=== PATIENT | female | born 1965 | race African-American/Black ===

== ENCOUNTER 2018-05-18 17:34 | Emergency (ER) | payer SELFPAY ==
[~2018-05-18] VITALS: Ht 162.6 cm; Wt 104.3 kg
[~2018-05-18 17:34] MED LIST: LEVO750T31 PO; PROM118S5 PO
--- NOTE | 2018-05-18 17:48 | PHYS DOC ---
Past Medical History Past Medical History: Anxiety, Asthma, Bronchitis Past Surgical History: , Hysterectomy Alcohol Use: Occasionally Drug Use: None Adult General Chief Complaint Chief Complaint: anxiety attack HPI HPI Patient is a 52 year old female with history of anxiety, bronchitis who presents with chest pain, palpitations and increased anxiety upon waking from sleep. Patient contacted a massive was hyperventilating with carpal spasm on their arrival. No medications given prior to ED arrival. Chest pain palpitations shortness of breath resolved prior to ED arrival. However, patient remains anxious. Denies acute stressors. Denies history of CAD, CHF, DVT or PE. Patient is a current smoker. Denies drugs or alcohol use. Patient does not participate and routine [facility] ED visit.[] Review of Systems Review of Systems Review of symptoms as per history of present illness. All other review symptoms are negative[] All other systems were reviewed and found to be within normal limits, except as documented in this note. Allergies Allergies Allergies Coded Allergies Type Severity Reaction Last Updated Verified shellfish derived Allergy Intermediate 01/30/16 Yes Physical Exam Physical Exam Constitutional: Well developed, well nourished, anxious[] HENT: Normocephalic, atraumatic, bilateral external ears normal, oropharynx moist, no oral exudates, nose normal. [] Eyes: PERRLA, EOMI, conjunctiva normal, no discharge. [] Neck: Normal range of motion, no tenderness, supple, no stridor. [] Cardiovascular:Heart rate regular rhythm, no murmur, negative Homans sign. [] Lungs & Thorax: Bilateral breath sounds clear to auscultation [] Abdomen: Bowel sounds normal, soft, no tenderness. [] Skin: Warm, dry, no erythema, no rash. [] Back: No tenderness, no CVA tenderness. [] Extremities: No tenderness, no cyanosis, no clubbing, no edema. [] Neurologic: Alert and oriented X 3, normal motor function, normal sensory function, no focal deficits noted. [] Psychologic: Affect normal, judgement normal, mood normal. [] EKG EKG [EKG: Normal sinus rhythm, left axis deviation, rate 75, no acute ST-T wave changes.] Radiology/Procedures Radiology/Procedures [Chest x-ray:] Course & Med Decision Making Course & Med Decision Making Pertinent Labs and Imaging studies reviewed. (See chart for details) [Patient anxious in ED arrival. EKG, reviewed. Cardiac labs were Pending. Given patient's presentation there is a low index of suspicion for acute coronary disease. Care endorsed to oncoming ERP at 1800 for reevaluation and disposition. ] Dragon Disclaimer Dragon Disclaimer This electronic medical record was generated, in whole or in part, using a voice recognition dictation system. Departure Departure Impression: Primary Impression: Anxiety Additional Impression: Chest pain Condition: STABLE Referrals: NO PCP (PCP) Problem Qualifiers CARLOS RODRÍGUEZ DO May 18, 2018 17:48
[2018-05-18 17:57] LABS: BASO # 0.1 x10^3/uL (0.0-0.2); BASO % 1 % (0-3); EOS # 0.3 x10^3/uL (0.0-0.7); EOS % 5 % (0-3); HEMATOCRIT 38.6 % (36.0-47.0); HEMOGLOBIN 13.4 g/dL (12.0-15.5); LYMPH # 2.2 x10^3/uL (1.0-4.8); LYMPH % 33 % (24-48); MEAN CORPUSCULAR HEMOGLOBIN 27 pg (25-35); MEAN CORPUSCULAR HGB CONC 35 g/dL (31-37); MEAN CORPUSCULAR VOLUME 76 fL (79-100); MONO # 0.5 x10^3/uL (0.0-1.1); MONO % 8 % (0-9); NEUT # 3.5 x10^3uL (1.8-7.7); NEUT % 53 % (31-73); PLATELET COUNT 314 x10^3/uL (140-400); RED BLOOD COUNT 5.06 x10^6/uL (3.50-5.40); RED CELL DISTRIBUTION WIDTH 14.5 % (11.5-14.5); WHITE BLOOD COUNT 6.6 x10^3/uL (4.0-11.0)
[2018-05-18 18:07] LABS: CALCIUM 9.1 mg/dL (8.5-10.1); CREATININE 1.3 mg/dL (0.6-1.0); GFR 52.3; POTASSIUM 4.1 mmol/L (3.5-5.1)
[2018-05-18 18:12] LABS: ALBUMIN 3.2 g/dL (3.4-5.0); ALBUMIN/GLOBULIN RATIO 0.8 (1.0-1.7); TOTAL BILIRUBIN 0.2 mg/dL (0.2-1.0); TOTAL PROTEIN 7.1 g/dL (6.4-8.2)
[2018-05-18 18:27] LABS: BILIRUBIN,URINE NEGATIVE (NEG); CLARITY,URINE CLEAR; COLOR,URINE YELLOW; NITRITE,URINE NEGATIVE (NEG); PH,URINE 5.5; PROTEIN,URINE NEGATIVE (NEG-TRACE)
--- NOTE | 2018-05-18 18:31 | RAD ---
EXAM: AP View of the chest DATE: 05/18/2018 5:46 PM INDICATION: chest pain COMPARISON: No Prior FINDINGS: The heart is mildly enlarged. Mediastinal and hilar contours are stable. Minimal bibasilar parenchymal opacities are seen. No pleural effusion or pneumothorax. IMPRESSION: Minimal bibasilar parenchymal opacities likely atelectasis. Electronically signed by: Paul Nicole MD (05/18/2018 6:27 PM) [facility]
[2018-05-18 18:35] LABS: BARBITURATES NEG (NEG); BENZODIAZEPINES NEG (NEG); CANNABINOIDS NEG (NEG); COCAINE POS (NEG); METHADONE NEG (NEG); OPIATES NEG (NEG); PHENCYCLIDINE NEG (NEG)
[2018-05-18 18:36] LABS: AMPHETAMINE/METHAMPHETAMINE NEG (NEG); BACTERIA,URINE MODERATE /HPF (0-FEW); RBC,URINE 0 /HPF (0-2); SQUAMOUS EPITHELIAL CELL,UR MANY /LPF; WBC,URINE OCC /HPF (0-4)
[2018-05-18 19:00] VITALS: BP 129/69
[2018-05-18] MEDS ORDERED: LORA0.5T96 PO (19:09)
--- NOTE | 2018-05-19 07:24 | EKG ---
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
== END 2018-05-18 19:21 | disposition home or self-care (01) ==
LOC: ER 17:34
DX: F41.9 Anxiety disorder, unspecified (principal); R07.89 Other chest pain; R00.2 Palpitations; R06.4 Hyperventilation; J45.909 Unspecified asthma, uncomplicated; Z90.710 Acquired absence of both cervix and uterus; Z98.890 Other specified postprocedural states; Z91.013 Allergy to seafood
CPT/HCPCS: 36415; 71045; 80053; 80307; 81001; 84484; 85025; 87086; 93005; 99285-25

== ENCOUNTER 2018-07-13 22:59 | Emergency (ER) | payer SELFPAY ==
[~2018-07-13] VITALS: Ht 162.6 cm; Wt 104.3 kg
[~2018-07-13 22:59] MED LIST changes: +LORA0.5T96 PO
[2018-07-13 23:10] VITALS: BP 131/75
[2018-07-13 23:32] LABS: BILIRUBIN,URINE NEGATIVE (NEG); CLARITY,URINE CLEAR; COLOR,URINE YELLOW; NITRITE,URINE NEGATIVE (NEG); PH,URINE 5.5; PROTEIN,URINE NEGATIVE (NEG-TRACE)
[2018-07-13 23:38] LABS: BARBITURATES NEG (NEG); BENZODIAZEPINES NEG (NEG); CANNABINOIDS NEG (NEG); COCAINE POS (NEG); METHADONE NEG (NEG); OPIATES NEG (NEG); PHENCYCLIDINE NEG (NEG)
[2018-07-13 23:39] LABS: AMPHETAMINE/METHAMPHETAMINE NEG (NEG)
[2018-07-13 23:42] LABS: BACTERIA,URINE MODERATE /HPF (0-FEW); RBC,URINE 0 /HPF (0-2); SQUAMOUS EPITHELIAL CELL,UR MANY /LPF
--- NOTE | 2018-07-13 23:58 | PHYS DOC ---
Past Medical History Past Medical History: Anxiety, Asthma, Bronchitis, Cancer, Other Additional Past Medical Histor: POOR HISTORIAN, THROAT CANCER Past Surgical History: , Hysterectomy Alcohol Use: Occasionally Drug Use: Cocaine, Other Social History Narrative: see nurses notes Adult General Chief Complaint Chief Complaint: SORE THROAT HPI HPI Patient is a 52 year old female who presents with planes. Originally her complaint was a sore throat. That story has morphed into body aches, numbness and tingling in various extremities, vision issues, hot flashes, and various dermatological issues. While the patient was talking to us she began removing her clothing. She was unable to focus on the questions and answer them coherently. She would start one train of thought and then switch to a different body system. She states that she was smoking something at home she does not know what it was. She does admit to using cocaine on a regular basis. She thinks she might have smoked crack. She began to become very agitated and abusive to the nurses threatening them in the room that we were trying to kick her out. She then started putting her clothes on and got up to leave the room. We had already collected urine and were swabbing her throat for a strep swab. She states that she was leaving because as soon as they find out that you use drugs they start refusing to treat you. She then left the room and went into the waiting room where she began yelling at security and the triage desk that we were refusing her treatment. She began stating that we told her she would have to go to drug rehabilitation. This was absolutely never discussed in the room. We had offered to give her resources to be seen at a clinic such as [facility] or [facility] for primary care because she states that she did not see a doctor because she had no insurance. She then began screaming that we were missed treating her because she is black. At this point windows security engineer told her that she could not raise her voice in the waiting room. The patient continued to argue with him and then left the facility. We had repeatedly offered to evaluate her for strep. She refused to speak with us about coming back into the department for care. Review of Systems Review of Systems Unable to obtain ROS due to patient's condition Allergies Allergies Allergies Coded Allergies Type Severity Reaction Last Updated Verified shellfish derived Allergy Intermediate 01/30/16 Yes Physical Exam Physical Exam Unable to obtain physical exam due to patient's condition Current Patient Data Vital Signs Vital Signs Date Time Temp Pulse Resp B/P (MAP) Pulse Ox O2 Delivery O2 Flow Rate FiO2 07/13/18 23:10 99.2 89 18 131/75 (93) 97 Room Air 99.2 Lab Values Laboratory Tests Test 07/13/18 23:10 Urine Collection Type Unknown Urine Color Yellow Urine Clarity Clear Urine pH 5.5 Urine Specific [place] 1.025 Urine Protein Negative mg/dL (NEG-TRACE) Urine Glucose (UA) Negative mg/dL (NEG) Urine Ketones (Stick) Negative mg/dL (NEG) Urine Blood Negative (NEG) Urine Nitrite Negative (NEG) Urine Bilirubin Negative (NEG) Urine Urobilinogen Dipstick 1.0 mg/dL (0.2 mg/dL) Urine Leukocyte Esterase Negative (NEG) Urine RBC 0 /HPF (0-2) Urine WBC 1-4 /HPF (0-4) Urine Squamous Epithelial Cells Many /LPF Urine Bacteria Moderate /HPF (0-FEW) Urine Mucus Marked /LPF Urine Opiates Screen Neg (NEG) Urine Methadone Screen Neg (NEG) Urine Barbiturates Neg (NEG) Urine Phencyclidine Screen Neg (NEG) Urine Amphetamine/Methamphetamine Neg (NEG) Urine Benzodiazepines Screen Neg (NEG) Urine Cocaine Screen Pos (NEG) Urine Cannabinoids Screen Neg (NEG) Urine Ethyl Alcohol Neg (NEG) EKG EKG [] Radiology/Procedures Radiology/Procedures [] Course & Med Decision Making Course & Med Decision Making Pertinent Labs and Imaging studies reviewed. (See chart for details) []Please see nurse's notes for more documentation on the patient's behavior while the provider was not in the room. Dragon Disclaimer Dragon Disclaimer This electronic medical record was generated, in whole or in part, using a voice recognition dictation system. Departure Departure Impression: Primary Impression: Left against medical advice Disposition: 07 AGAINST MEDICAL ADVICE Referrals: NO PCP (PCP) AD VAZQUEZ APRN Jul 13, 2018 23:58
== END 2018-07-13 23:25 | disposition left against medical advice (07) ==
LOC: ER 22:59
DX: J02.9 Acute pharyngitis, unspecified (principal); M79.10 Myalgia, unspecified site; R20.2 Paresthesia of skin; F41.9 Anxiety disorder, unspecified; J45.909 Unspecified asthma, uncomplicated; F14.10 Cocaine abuse, uncomplicated; Z91.013 Allergy to seafood
CPT/HCPCS: 80307; 81001; 87086; 99281

== ENCOUNTER 2018-10-11 19:59 | Inpatient (IN) | payer SELFPAY ==
[~2018-10-11] VITALS: Ht 167.6 cm; Wt 103.6 kg
[2018-10-11] MEDS ORDERED: IV NORMAL SALINE 1000ML BAG 1,000 ML IV ONE (21:00)
--- NOTE | 2018-10-11 21:06 | PHYS DOC ---
Past Medical History Past Medical History: Anxiety, Asthma, Bronchitis, Cancer, Other Additional Past Medical Histor: POOR HISTORIAN, THROAT CANCER Past Surgical History: , Hysterectomy Smokin Pack Per Day Alcohol Use: Occasionally Drug Use: Cocaine, Other Adult General Chief Complaint Chief Complaint: MULTIPLE COMPLAINTS HPI HPI Patient is a 53-year-old female presenting with 2 weeks of coughing and shortness of breath, she has noticed some blood in her sputum. She reports that she has some pain with coughing and deep breaths. She has a past medical history of asthma, chronic bronchitis, and diabetes. She reports that she has been diagnosed with throat cancer but has not had follow-up in 4-5 years. She denies any nausea, vomiting, fevers. She reports that other than the blood her sputum has been clear. She has not taken any medication for this problem. Reports some associated chest pain. Review of Systems Review of Systems Constitutional: Denies fever or chills [] Eyes: Denies change in visual acuity, redness, or eye pain [] HENT: Reports nasal congestion, sore throat[] Respiratory: Reports cough and shortness of breath [] Cardiovascular: Reports chest pain; denies palpitations [] GI: Denies abdominal pain, nausea, vomiting, or diarrhea [] : Denies dysuria or hematuria [] Musculoskeletal: Denies back pain or joint pain [] Integument: Denies rash or skin lesions [] Neurologic: Denies headache, focal weakness or sensory changes [] Complete systems were reviewed and found to be within normal limits, except as documented in this note. Current Medications Current Medications Current Medications Medications (Trade) Dose Ordered Sig/Unruly Start Time Stop Time Status Last Admin Dose Admin Albuterol/ Ipratropium (Duoneb) 3 ml 1X ONCE 10/11/18 21:30 10/11/18 21:31 DC 10/11/18 21:57 3 ML Dexamethasone Sodium Phosphate (Decadron) 10 mg 1X ONCE 10/11/18 21:30 10/11/18 21:31 DC 10/11/18 21:24 10 MG Info (CONTRAST GIVEN -- Rx MONITORING) 1 each PRN DAILY PRN 10/11/18 22:00 10/13/18 21:59 Iohexol (Omnipaque 350 Mg/ml) 100 ml 1X ONCE 10/11/18 22:30 10/11/18 22:31 DC 10/11/18 22:24 100 ML Sodium Chloride 1,000 ml @ 1,000 mls/hr 1X ONCE 10/11/18 21:00 10/11/18 21:59 DC 10/11/18 21:25 1,000 MLS/HR Allergies Allergies Allergies Coded Allergies Type Severity Reaction Last Updated Verified shellfish derived Allergy Intermediate 01/30/16 Yes Physical Exam Physical Exam Constitutional: Well developed, well nourished, no acute distress, non-toxic appearance. [] HENT: Normocephalic, atraumatic, nose normal. [] Eyes: Conjunctiva normal, no discharge. [] Neck: Normal range of motion, no tenderness. [] Cardiovascular: Heart rate regular rhythm, no murmur [] Lungs & Thorax: Chest tightness and wheezing throughout with productive cough with clear sputum [] Abdomen: Bowel sounds normal, soft, no tenderness. [] Skin: Warm, dry, no erythema, no rash. [] Back: No tenderness, no CVA tenderness. [] Extremities: No tenderness, mild LE pitting edema [] Neurologic: Alert and oriented X 3, no focal deficits noted. [] Psychologic: Affect normal, judgement normal, mood normal. [] Current Patient Data Vital Signs Vital Signs Date Time Temp Pulse Resp B/P (MAP) Pulse Ox O2 Delivery O2 Flow Rate FiO2 10/11/18 23:57 65 20 172/93 (119) 99 Room Air 10/11/18 20:19 97.5 97.5 Lab Values Laboratory Tests Test 10/11/18 21:15 White Blood Count 8.3 x10^3/uL (4.0-11.0) Red Blood Count 5.13 x10^6/uL (3.50-5.40) Hemoglobin 12.8 g/dL (12.0-15.5) Hematocrit 38.9 % (36.0-47.0) Mean Corpuscular Volume 76 fL (79-100) L Mean Corpuscular Hemoglobin 25 pg (25-35) Mean Corpuscular Hemoglobin Concent 33 g/dL (31-37) Red Cell Distribution Width 15.2 % (11.5-14.5) H Platelet Count 310 x10^3/uL (140-400) Neutrophils (%) (Auto) 62 % (31-73) Lymphocytes (%) (Auto) 26 % (24-48) Monocytes (%) (Auto) 6 % (0-9) Eosinophils (%) (Auto) 5 % (0-3) H Basophils (%) (Auto) 1 % (0-3) Neutrophils # (Auto) 5.2 x10^3uL (1.8-7.7) Lymphocytes # (Auto) 2.2 x10^3/uL (1.0-4.8) Monocytes # (Auto) 0.5 x10^3/uL (0.0-1.1) Eosinophils # (Auto) 0.4 x10^3/uL (0.0-0.7) Basophils # (Auto) 0.1 x10^3/uL (0.0-0.2) Prothrombin Time 12.0 SEC (11.7-14.0) Prothrombin Time INR 0.9 (0.8-1.1) Sodium Level 143 mmol/L (136-145) Potassium Level 4.1 mmol/L (3.5-5.1) Chloride Level 106 mmol/L (98-107) Carbon Dioxide Level 30 mmol/L (21-32) Anion Gap 7 (6-14) Blood Urea Nitrogen 15 mg/dL (7-20) Creatinine 0.8 mg/dL (0.6-1.0) Estimated GFR (Cockcroft-Gault) 91.1 BUN/Creatinine Ratio 19 (6-20) Glucose Level 104 mg/dL (70-99) H Lactic Acid Level 0.8 mmol/L (0.4-2.0) Calcium Level 8.7 mg/dL (8.5-10.1) Magnesium Level 2.0 mg/dL (1.8-2.4) Total Bilirubin 0.1 mg/dL (0.2-1.0) L Aspartate Amino Transferase (AST) 11 U/L (15-37) L Alanine Aminotransferase (ALT) 12 U/L (14-59) L Alkaline Phosphatase 112 U/L (46-116) Creatine Kinase 58 U/L (26-192) Creatine Kinase MB (Mass) < 0.5 ng/mL (0.0-3.6) Creatine Kinase MB Relative Index % (0-4) Troponin I Quantitative < 0.017 ng/mL (0.000-0.055) AL-Fxg-B-Type Natriuretic Peptide 98 pg/mL (0-124) Total Protein 6.9 g/dL (6.4-8.2) Albumin 2.9 g/dL (3.4-5.0) L Albumin/Globulin Ratio 0.7 (1.0-1.7) L Lipase 128 U/L (73-393) Laboratory Tests 10/11/18 21:15 Laboratory Tests 10/11/18 21:15 EKG EKG EKG @ 2152 sinus rhythm at 64 BPM, no ST elevation Radiology/Procedures Radiology/Procedures PROCEDURE: CT ANGIOGRAPHY CHEST INDICATION: chest pain, hemoptysis eval for PE, OMNI 350, 100ml COMPARISON: None. TECHNIQUE: Axial CT images obtained through the chest. Intravenous contrast utilized. Angiogram 3D images processed per protocol. One or more of the following individualized dose reduction techniques were utilized for this examination: 1. Automated exposure control; 2. Adjustment of the mA and/or kV according to patient size; 3. Use of iterative reconstruction technique. FINDINGS: No evidence of pneumothorax. Large amount of patient motion limits this exam. Masslike opacity in the right infrahilar region measuring approximately 18 x 11 mm. Also prominent lymph nodes in mediastinum. For example precarinal region measuring up to about 9 mm short axis. Liver is partially seen and appears low density. Nonspecific but can be seen with fatty infiltration. Prominence of wall of distal esophagus as well as well as part of partially visualized stomach. Large amount of motion obscures a large portion of the thoracic aorta. Thyroid nodules suspected. Degenerative changes throughout spine. There is very little contrast within the pulmonary arteries and severe patient motion therefore essentially nondiagnostic exam for pulmonary embolus. IMPRESSION: Severe patient motion and very little contrast within the pulmonary arteries therefore essentially nondiagnostic exam for pulmonary embolus. If further evaluation is desired nuclear VQ scan may be helpful to further evaluate. Within the right infrahilar region there is a masslike structure identified. Could be secondary to an enlarged lymph node within the area or a pulmonary nodule. Further workup option would include obtaining a PET/CT or a short interval follow-up CT to ensure no growth given that neoplastic causes are in the differential for this finding. Wall of the esophagus appears mildly prominent as well as partially visualized stomach wall. Could be from lack of distention but would correlate with symptoms to ensure there is not a pathologic cause such as esophagitis/gastritis. Electronically signed by: Rober Jackson MD (10/11/2018 11:12 PM) [facility] DICTATED and SIGNED BY: ROBER JACKSON MD DATE: 10/11/18 7527 Course & Med Decision Making Course & Med Decision Making Pertinent Labs and Imaging studies reviewed. (See chart for details) Patient is a 53-year-old female with 2 weeks history of hemoptysis with shortness of breath and chest pain. EKG and initial troponin with CK-MB within normal limits. HEART score: 3. DuoNeb and steroids administered. Lactic acid, CBC, PT/INR within normal limits. CTA was inconclusive due to motion artifact, radiology suggested follow-up VQ scan to rule out pulmonary embolus. CTA also showed pulmonary nodule that will require follow-up management for the patient. Lovenox administered prophylactically because of inability to rule out PE. Discussed the need to admission to evaluate hemoptysis and possible PE. Patient requiring admission for further evaluation and treatment. Discussed with Dr. Evan Hendricks (hospitalist) who is in agreement with admission. Discussed findings and plan with patient and family, who acknowledge understanding and agreement. Dragon Disclaimer Dragon Disclaimer This electronic medical record was generated, in whole or in part, using a voice recognition dictation system. Departure Departure Impression: Primary Impression: Chest pain Additional Impressions: Pulmonary nodule Hemoptysis COPD (chronic obstructive pulmonary disease) Disposition: ADMITTED INPATIENT Admitting Physician: Other (Gildardo Townsend) Condition: STABLE Referrals: NO PCP (PCP) Problem Qualifiers Primary Impression: Chest pain Chest pain type: unspecified Qualified Codes: R07.9 - Chest pain, unspecified Additional Impressions: COPD (chronic obstructive pulmonary disease) COPD type: unspecified COPD Qualified Codes: J44.9 - Chronic obstructive pulmonary disease, unspecified JUSTINE WAGNER DO Oct 11, 2018 21:06
[2018-10-11] MEDS ORDERED: IPRATRPIUM/ALBUTEROL 0.5/2.5MG 3 ML NEBU. NEB ONE (21:30)
[2018-10-11] MEDS ORDERED: DEXAMETHASONE SOD PHOS 20 MG/5 ML VIAL. IV ONE (21:30)
[2018-10-11 21:31] LABS: BASO # 0.1 x10^3/uL (0.0-0.2); BASO % 1 % (0-3); EOS # 0.4 x10^3/uL (0.0-0.7); EOS % 5 % (0-3); HEMATOCRIT 38.9 % (36.0-47.0); HEMOGLOBIN 12.8 g/dL (12.0-15.5); LYMPH # 2.2 x10^3/uL (1.0-4.8); LYMPH % 26 % (24-48); MEAN CORPUSCULAR HEMOGLOBIN 25 pg (25-35); MEAN CORPUSCULAR HGB CONC 33 g/dL (31-37); MEAN CORPUSCULAR VOLUME 76 fL (79-100); MONO # 0.5 x10^3/uL (0.0-1.1); MONO % 6 % (0-9); NEUT # 5.2 x10^3uL (1.8-7.7); NEUT % 62 % (31-73); PLATELET COUNT 310 x10^3/uL (140-400); RED BLOOD COUNT 5.13 x10^6/uL (3.50-5.40); RED CELL DISTRIBUTION WIDTH 15.2 % (11.5-14.5); WHITE BLOOD COUNT 8.3 x10^3/uL (4.0-11.0)
[2018-10-11 21:43] LABS: CALCIUM 8.7 mg/dL (8.5-10.1); CREATININE 0.8 mg/dL (0.6-1.0); GFR 91.1; POTASSIUM 4.1 mmol/L (3.5-5.1)
[2018-10-11 21:48] LABS: ALBUMIN 2.9 g/dL (3.4-5.0); ALBUMIN/GLOBULIN RATIO 0.7 (1.0-1.7); TOTAL BILIRUBIN 0.1 mg/dL (0.2-1.0); TOTAL PROTEIN 6.9 g/dL (6.4-8.2)
[2018-10-11 21:58] LABS: CREATINE KINASE 58 U/L (26-192)
[2018-10-11] MEDS ORDERED: CONTRAST GIVEN. MC PRN (22:00)
[2018-10-11] MEDS ORDERED: IOHEXOL 350 MG/ML 100 ML VIAL. IV ONE (22:30)
--- NOTE | 2018-10-11 23:15 | RAD ---
INDICATION: chest pain, hemoptysis eval for PE, OMNI 350, 100ml COMPARISON: None. TECHNIQUE: Axial CT images obtained through the chest. Intravenous contrast utilized. Angiogram 3D images processed per protocol. One or more of the following individualized dose reduction techniques were utilized for this examination: 1. Automated exposure control; 2. Adjustment of the mA and/or kV according to patient size; 3. Use of iterative reconstruction technique. FINDINGS: No evidence of pneumothorax. Large amount of patient motion limits this exam. Masslike opacity in the right infrahilar region measuring approximately 18 x 11 mm. Also prominent lymph nodes in mediastinum. For example precarinal region measuring up to about 9 mm short axis. Liver is partially seen and appears low density. Nonspecific but can be seen with fatty infiltration. Prominence of wall of distal esophagus as well as well as part of partially visualized stomach. Large amount of motion obscures a large portion of the thoracic aorta. Thyroid nodules suspected. Degenerative changes throughout spine. There is very little contrast within the pulmonary arteries and severe patient motion therefore essentially nondiagnostic exam for pulmonary embolus. IMPRESSION: Severe patient motion and very little contrast within the pulmonary arteries therefore essentially nondiagnostic exam for pulmonary embolus. If further evaluation is desired nuclear VQ scan may be helpful to further evaluate. Within the right infrahilar region there is a masslike structure identified. Could be secondary to an enlarged lymph node within the area or a pulmonary nodule. Further workup option would include obtaining a PET/CT or a short interval follow-up CT to ensure no growth given that neoplastic causes are in the differential for this finding. Wall of the esophagus appears mildly prominent as well as partially visualized stomach wall. Could be from lack of distention but would correlate with symptoms to ensure there is not a pathologic cause such as esophagitis/gastritis. Electronically signed by: Elijah Guo MD (10/11/2018 11:12 PM) [facility]
[2018-10-12] VITALS (7 sets, daily range): BP systolic 140–156; BP diastolic 65–83
[2018-10-12] MEDS ORDERED: DEXTROSE 50% 25 GM / 50ML DISP.SYRIN. IV PRN
[2018-10-12] MEDS ORDERED: ALBUTEROL SULFATE 2.5 MG/3 ML NEBU. NEB PRN (00:15)
[2018-10-12 02:51] LABS: BILIRUBIN,URINE NEGATIVE (NEG); CLARITY,URINE CLEAR; COLOR,URINE YELLOW; NITRITE,URINE NEGATIVE (NEG); PH,URINE 6.5; PROTEIN,URINE NEGATIVE (NEG-TRACE); UROBILINOGEN,URINE 0.2 mg/dL (0.2 mg/dL)
[2018-10-12 03:12] LABS: BACTERIA,URINE MODERATE /HPF (0-FEW); RBC,URINE OCC /HPF (0-2); SQUAMOUS EPITHELIAL CELL,UR FEW /LPF; WBC,URINE OCC /HPF (0-4)
[2018-10-12] MEDS: INSULIN LISPRO 300 UNITS/3 ML INSULN.PEN. SQ SCH ×3 (07:57→17:00)
[2018-10-12 09:40] LABS: BARBITURATES NEG (NEG); BENZODIAZEPINES NEG (NEG); CANNABINOIDS NEG (NEG); COCAINE NEG (NEG); METHADONE NEG (NEG); OPIATES NEG (NEG); PHENCYCLIDINE NEG (NEG)
[2018-10-12 09:48] LABS: AMPHETAMINE/METHAMPHETAMINE NEG (NEG)
--- NOTE | 2018-10-12 10:04 | PDOC1 ---
History and Physical Date of Admission Date of Admission DATE: 10/12/18 TIME: 10:04 Identification/Chief Complaint Chief Complaint Patient is a 53-year-old female presenting with 2 weeks of coughing and shortness of breath, she has noticed some blood in her sputum. She reports that she has some pain with coughing and deep breaths. She has a past medical history of asthma, chronic bronchitis, and diabetes. She reports that she has been diagnosed with throat cancer but has not had follow-up in 4-5 years. She denies any nausea, vomiting, fevers. She reports that other than the blood her sputum has been clear. c/o epistaxis this AM Past Medical History Past Medical History Past Medical History Past Medical History: Anxiety, Asthma, Bronchitis, Cancer, Other Additional Past Medical Histor: POOR HISTORIAN, THROAT CANCER Past Surgical History: , Hysterectomy Smokin Pack Per Day Alcohol Use: Occasionally Drug Use: Cocaine, Other FAMILY HX OBESITY Cardiovascular: HTN Pulmonary: Asthma Psych: Anxiety, Addictions Family History Family History: Hypertension Social History Smoke: <1 pack per day ALCOHOL: none Drugs: Cocaine Current Problem List Problem List Problems Medical Problems: (1) Chest pain Status: Acute (2) COPD (chronic obstructive pulmonary disease) Status: Acute (3) Hemoptysis Status: Acute (4) Pulmonary nodule Status: Acute Current Medications Current Medications Current Medications Sodium Chloride 1,000 ml @ 1,000 mls/hr 1X ONCE IV Last administered on at 21:25; Start 10/11/18 at 21:00; Stop 10/11/18 at 21:59; Status DC Albuterol/ Ipratropium (Duoneb) 3 ml 1X ONCE NEB Last administered on at 21:57; Start 10/11/18 at 21:30; Stop 10/11/18 at 21:31; Status DC Dexamethasone Sodium Phosphate (Decadron) 10 mg 1X ONCE IV Last administered on 10/11/18at 21:24; Start 10/11/18 at 21:30; Stop 10/11/18 at 21:31; Status DC Iohexol (Omnipaque 350 Mg/ml) 100 ml 1X ONCE IV Last administered on at 22:24; Start 10/11/18 at 22:30; Stop 10/11/18 at 22:31; Status DC Info (CONTRAST GIVEN -- Rx MONITORING) 1 each PRN DAILY PRN MC SEE COMMENTS; Start 10/11/18 at 22:00; Stop 10/13/18 at 21:59 Enoxaparin Sodium (Lovenox 100mg Syringe) 100 mg 1X ONCE SQ Last administered on 10/12/18at 00:21; Start 10/12/18 at 00:30; Stop 10/12/18 at 00:31; Status DC Ondansetron HCl (Zofran) 4 mg PRN Q8HRS PRN IV NAUSEA/VOMITING 1ST CHOICE; Start 10/12/18 at 00:00; Stop 10/12/18 at 23:59 Insulin Human Lispro (HumaLOG) 0-5 UNITS TIDWMEALS SQ ; Start 10/12/18 at 08:00 Dextrose (Dextrose 50%-Water Syringe) 12.5 gm PRN Q15MIN PRN IV SEE COMMENTS; Start 10/12/18 at 00:00 Albuterol Sulfate (Ventolin Neb Soln) 2.5 mg PRN Q4HRS PRN NEB WHEEZING Last administered on 10/12/18at 09:48; Start 10/12/18 at 00:15 Active Scripts Active Reported No Known Medications Prior To Admisstion (Info) Each 1 Each MC Allergies Allergies: Coded Allergies: shellfish derived (Verified Allergy, Intermediate, 01/30/16) ROS Review of System Review of Systems Review of Systems Constitutional: Denies fever or chills [] Eyes: Denies change in visual acuity, redness, or eye pain [] HENT: Reports nasal congestion, sore throat[] NASAL BLEEDING Respiratory: Reports cough and shortness of breath [] Cardiovascular: Reports chest pain; denies palpitations [] GI: Denies abdominal pain, nausea, vomiting, or diarrhea [] : Denies dysuria or hematuria [] Musculoskeletal: Denies back pain or joint pain [] Integument: Denies rash or skin lesions [] Neurologic: Denies headache, focal weakness or sensory changes [] 14 PT systems were reviewed and found to be within normal limits, except as documented HEENT: YES: Nasal congestion, Epistaxis Gastrointestinal: No Nausea, No Vomiting, No Abdominal Pain, No Diarrhea, No Constipation, No Melena, No Hematochezia, No Other Physical Exam Physical Exam Physical Exam Physical Exam Constitutional: Well developed, well nourished, no acute distress, non-toxic appearance. [] HENT: Normocephalic, atraumatic, [] Eyes: Conjunctiva normal, no discharge. [] Neck: Normal range of motion, no tenderness. [] Cardiovascular: Heart rate regular rhythm, no murmur [] Lungs & Thorax: Chest tightness and wheezing throughout with productive cough with clear sputum [] Abdomen: Bowel sounds normal, soft, no tenderness. [] Skin: Warm, dry, no erythema, no rash. [] Back: No tenderness, no CVA tenderness. [] Extremities: No tenderness, mild LE pitting edema [] Neurologic: Alert and oriented X 3, no focal deficits noted. [] Psychologic: Affect normal, judgement normal, mood normal. [] General: Alert, Oriented X3, Cooperative, mild distress HEENT: Atraumatic, EOMI, Mucous membr. moist/pink Lungs: Clear to auscultation Heart: S1S2, RRR Breasts: Not examined Abdomen: Normal bowel sounds Rectal Exam: not examined PELVIC: Examination not indicated Extremities: No cyanosis Skin: No breakdown Neuro: Cranial nerves 3-12 NL Psych/Mental Status: Mental status NL Vitals Vitals Vital Signs Date Time Temp Pulse Resp B/P (MAP) Pulse Ox O2 Delivery O2 Flow Rate FiO2 10/12/18 09:49 98 Room Air 10/12/18 07:15 98.1 102 19 155/77 (103) 98.1 Labs Labs Laboratory Tests Test 10/11/18 21:15 10/12/18 01:10 10/12/18 02:55 10/12/18 06:00 White Blood Count 8.3 x10^3/uL (4.0-11.0) Red Blood Count 5.13 x10^6/uL (3.50-5.40) Hemoglobin 12.8 g/dL (12.0-15.5) Hematocrit 38.9 % (36.0-47.0) Mean Corpuscular Volume 76 fL (79-100) Mean Corpuscular Hemoglobin 25 pg (25-35) Mean Corpuscular Hemoglobin Concent 33 g/dL (31-37) Red Cell Distribution Width 15.2 % (11.5-14.5) Platelet Count 310 x10^3/uL (140-400) Neutrophils (%) (Auto) 62 % (31-73) Lymphocytes (%) (Auto) 26 % (24-48) Monocytes (%) (Auto) 6 % (0-9) Eosinophils (%) (Auto) 5 % (0-3) Basophils (%) (Auto) 1 % (0-3) Neutrophils # (Auto) 5.2 x10^3uL (1.8-7.7) Lymphocytes # (Auto) 2.2 x10^3/uL (1.0-4.8) Monocytes # (Auto) 0.5 x10^3/uL (0.0-1.1) Eosinophils # (Auto) 0.4 x10^3/uL (0.0-0.7) Basophils # (Auto) 0.1 x10^3/uL (0.0-0.2) Prothrombin Time 12.0 SEC (11.7-14.0) Prothromb Time International Ratio 0.9 (0.8-1.1) Sodium Level 143 mmol/L (136-145) Potassium Level 4.1 mmol/L (3.5-5.1) Chloride Level 106 mmol/L (98-107) Carbon Dioxide Level 30 mmol/L (21-32) Anion Gap 7 (6-14) Blood Urea Nitrogen 15 mg/dL (7-20) Creatinine 0.8 mg/dL (0.6-1.0) Estimated GFR (Cockcroft-Gault) 91.1 BUN/Creatinine Ratio 19 (6-20) Glucose Level 104 mg/dL (70-99) Lactic Acid Level 0.8 mmol/L (0.4-2.0) Calcium Level 8.7 mg/dL (8.5-10.1) Magnesium Level 2.0 mg/dL (1.8-2.4) Total Bilirubin 0.1 mg/dL (0.2-1.0) Aspartate Amino Transf (AST/SGOT) 11 U/L (15-37) Alanine Aminotransferase (ALT/SGPT) 12 U/L (14-59) Alkaline Phosphatase 112 U/L (46-116) Creatine Kinase 58 U/L (26-192) Creatine Kinase MB (Mass) < 0.5 ng/mL (0.0-3.6) Creatine Kinase MB Relative Index % (0-4) Troponin I Quantitative < 0.017 ng/mL (0.000-0.055) < 0.017 ng/mL (0.000-0.055) < 0.017 ng/mL (0.000-0.055) RC-Gev-I-Type Natriuretic Peptide 98 pg/mL (0-124) Total Protein 6.9 g/dL (6.4-8.2) Albumin 2.9 g/dL (3.4-5.0) Albumin/Globulin Ratio 0.7 (1.0-1.7) Lipase 128 U/L (73-393) Urine Collection Type Unknown Urine Color Yellow Urine Clarity Clear Urine pH 6.5 Urine Specific Luther >=1.030 Urine Protein Negative mg/dL (NEG-TRACE) Urine Glucose (UA) Negative mg/dL (NEG) Urine Ketones (Stick) Negative mg/dL (NEG) Urine Blood Negative (NEG) Urine Nitrite Negative (NEG) Urine Bilirubin Negative (NEG) Urine Urobilinogen Dipstick 0.2 mg/dL (0.2 mg/dL) Urine Leukocyte Esterase Negative (NEG) Urine RBC Occ /HPF (0-2) Urine WBC Occ /HPF (0-4) Urine Squamous Epithelial Cells Few /LPF Urine Bacteria Moderate /HPF (0-FEW) Test 10/12/18 07:08 10/12/18 09:13 Glucose (Fingerstick) 131 mg/dL (70-99) Urine Opiates Screen Neg (NEG) Urine Methadone Screen Neg (NEG) Urine Barbiturates Neg (NEG) Urine Phencyclidine Screen Neg (NEG) Urine Amphetamine/Methamphetamine Neg (NEG) Urine Benzodiazepines Screen Neg (NEG) Urine Cocaine Screen Neg (NEG) Urine Cannabinoids Screen Neg (NEG) Urine Ethyl Alcohol Neg (NEG) Laboratory Tests Test 10/11/18 21:15 10/12/18 01:10 10/12/18 02:55 10/12/18 06:00 White Blood Count 8.3 x10^3/uL (4.0-11.0) Red Blood Count 5.13 x10^6/uL (3.50-5.40) Hemoglobin 12.8 g/dL (12.0-15.5) Hematocrit 38.9 % (36.0-47.0) Mean Corpuscular Volume 76 fL (79-100) Mean Corpuscular Hemoglobin 25 pg (25-35) Mean Corpuscular Hemoglobin Concent 33 g/dL (31-37) Red Cell Distribution Width 15.2 % (11.5-14.5) Platelet Count 310 x10^3/uL (140-400) Neutrophils (%) (Auto) 62 % (31-73) Lymphocytes (%) (Auto) 26 % (24-48) Monocytes (%) (Auto) 6 % (0-9) Eosinophils (%) (Auto) 5 % (0-3) Basophils (%) (Auto) 1 % (0-3) Neutrophils # (Auto) 5.2 x10^3uL (1.8-7.7) Lymphocytes # (Auto) 2.2 x10^3/uL (1.0-4.8) Monocytes # (Auto) 0.5 x10^3/uL (0.0-1.1) Eosinophils # (Auto) 0.4 x10^3/uL (0.0-0.7) Basophils # (Auto) 0.1 x10^3/uL (0.0-0.2) Prothrombin Time 12.0 SEC (11.7-14.0) Prothromb Time International Ratio 0.9 (0.8-1.1) Sodium Level 143 mmol/L (136-145) Potassium Level 4.1 mmol/L (3.5-5.1) Chloride Level 106 mmol/L (98-107) Carbon Dioxide Level 30 mmol/L (21-32) Anion Gap 7 (6-14) Blood Urea Nitrogen 15 mg/dL (7-20) Creatinine 0.8 mg/dL (0.6-1.0) Estimated GFR (Cockcroft-Gault) 91.1 BUN/Creatinine Ratio 19 (6-20) Glucose Level 104 mg/dL (70-99) Lactic Acid Level 0.8 mmol/L (0.4-2.0) Calcium Level 8.7 mg/dL (8.5-10.1) Magnesium Level 2.0 mg/dL (1.8-2.4) Total Bilirubin 0.1 mg/dL (0.2-1.0) Aspartate Amino Transf (AST/SGOT) 11 U/L (15-37) Alanine Aminotransferase (ALT/SGPT) 12 U/L (14-59) Alkaline Phosphatase 112 U/L (46-116) Creatine Kinase 58 U/L (26-192) Creatine Kinase MB (Mass) < 0.5 ng/mL (0.0-3.6) Creatine Kinase MB Relative Index % (0-4) Troponin I Quantitative < 0.017 ng/mL (0.000-0.055) < 0.017 ng/mL (0.000-0.055) < 0.017 ng/mL (0.000-0.055) TK-Qrv-S-Type Natriuretic Peptide 98 pg/mL (0-124) Total Protein 6.9 g/dL (6.4-8.2) Albumin 2.9 g/dL (3.4-5.0) Albumin/Globulin Ratio 0.7 (1.0-1.7) Lipase 128 U/L (73-393) Urine Collection Type Unknown Urine Color Yellow Urine Clarity Clear Urine pH 6.5 Urine Specific Luther >=1.030 Urine Protein Negative mg/dL (NEG-TRACE) Urine Glucose (UA) Negative mg/dL (NEG) Urine Ketones (Stick) Negative mg/dL (NEG) Urine Blood Negative (NEG) Urine Nitrite Negative (NEG) Urine Bilirubin Negative (NEG) Urine Urobilinogen Dipstick 0.2 mg/dL (0.2 mg/dL) Urine Leukocyte Esterase Negative (NEG) Urine RBC Occ /HPF (0-2) Urine WBC Occ /HPF (0-4) Urine Squamous Epithelial Cells Few /LPF Urine Bacteria Moderate /HPF (0-FEW) Test 10/12/18 07:08 10/12/18 09:13 Glucose (Fingerstick) 131 mg/dL (70-99) Urine Opiates Screen Neg (NEG) Urine Methadone Screen Neg (NEG) Urine Barbiturates Neg (NEG) Urine Phencyclidine Screen Neg (NEG) Urine Amphetamine/Methamphetamine Neg (NEG) Urine Benzodiazepines Screen Neg (NEG) Urine Cocaine Screen Neg (NEG) Urine Cannabinoids Screen Neg (NEG) Urine Ethyl Alcohol Neg (NEG) Images Images STATUS: REG ER ORD. PHYSICIAN: JUSTINE WAGNER DO REASON: chest pain, hemoptysis eval for PE, OMNI 350, 100ml PROCEDURE: CT ANGIOGRAPHY CHEST INDICATION: chest pain, hemoptysis eval for PE, OMNI 350, 100ml COMPARISON: None. TECHNIQUE: Axial CT images obtained through the chest. Intravenous contrast utilized. Angiogram 3D images processed per protocol. One or more of the following individualized dose reduction techniques were utilized for this examination: 1. Automated exposure control; 2. Adjustment of the mA and/or kV according to patient size; 3. Use of iterative reconstruction technique. FINDINGS: No evidence of pneumothorax. Large amount of patient motion limits this exam. Masslike opacity in the right infrahilar region measuring approximately 18 x 11 mm. Also prominent lymph nodes in mediastinum. For example precarinal region measuring up to about 9 mm short axis. Liver is partially seen and appears low density. Nonspecific but can be seen with fatty infiltration. Prominence of wall of distal esophagus as well as well as part of partially visualized stomach. Large amount of motion obscures a large portion of the thoracic aorta. Thyroid nodules suspected. Degenerative changes throughout spine. There is very little contrast within the pulmonary arteries and severe patient motion therefore essentially nondiagnostic exam for pulmonary embolus. IMPRESSION: Severe patient motion and very little contrast within the pulmonary arteries therefore essentially nondiagnostic exam for pulmonary embolus. If further evaluation is desired nuclear VQ scan may be helpful to further evaluate. Within the right infrahilar region there is a masslike structure identified. Could be secondary to an enlarged lymph node within the area or a pulmonary nodule. Further workup option would include obtaining a PET/CT or a short interval follow-up CT to ensure no growth given that neoplastic causes are in the differential for this finding. Wall of the esophagus appears mildly prominent as well as partially visualized stomach wall. Could be from lack of distention but would correlate with symptoms to ensure there is not a pathologic cause such as esophagitis/gastritis. Electronically signed by: Rober Jackson MD (10/11/2018 11:12 PM) [facility] DICTATED and SIGNED BY: ROBER JACKSON MD DATE: 10/11/18 0629 VTE Prophylaxis Ordered VTE Prophylaxis Devices: Yes VTE Pharmacological Prophylaxi: Contraindicated Assessment/Plan Assessment/Plan IMPRESSION 1. Chest pain 2.on CTA right infrahilar region there is a masslike structure identified. Could be secondary to an enlarged lymph node within the area or a pulmonary nodule 3.Chest pain 4.COPD (chronic obstructive pulmonary disease) 5. Tobacco abuse 6. remote hx cocaine abuse, last use 4 months [employer] 7. epistaxis 8. uncontrolled hypertension PLAN PULM CONSULT CARD CONSULT d/w dr Mae tele serial troponin i echo iv hydralazine prn 10mg q 4 hrs prn bp support toprol xl 25 mg po daily scd's smoking cessation education provided ct soft tissues of neck 75 min pt exam, chart review, > 50% of time with exam, chart review, pt care coordination KARINA HURLEY MD Oct 12, 2018 10:04
--- NOTE | 2018-10-12 10:30 | NUR ---
Pt had active nose bleed. Dr Willis on the unit and assessed pt. Pt was hypertensive and I received orders from Dr Willis for a one time dose of hydralizine. Med given. Bleeding stopped after 7 min of pressure. VS remain stable.
[2018-10-12] MEDS ORDERED: guaiFENesin ORAL 200 MG/10 ML LIQUID. PO PRN (10:45)
[2018-10-12] MEDS ORDERED: cloNIDine HCL 0.1 MG TABLET PO PRN (10:45)
[2018-10-12] MEDS ORDERED: MAG HYDROX/ALUMINUM HYD/SIMETH 30 ML ORAL.SUSP PO PRN (10:45)
[2018-10-12] MEDS ORDERED: ACETAMINOPHEN 650 MG/20.3 ML SOLUTION. PO PRN (10:45)
[2018-10-12] MEDS ORDERED: LORazepam 0.5 MG TABLET PO PRN (10:45)
[2018-10-12] MEDS ORDERED: 0.9 % SODIUM CHLORIDE 3ML DISP.SYRIN. IV PRN (10:45)
[2018-10-12] MEDS ORDERED: ONDANSETRON PF 4 MG/2 ML VIAL. IV PRN ×2 (10:45)
[2018-10-12] MEDS ORDERED: DOCUSATE SODIUM 100 MG CAPSULE. PO PRN (10:45)
[2018-10-12] MEDS ORDERED: hydrALAZINE 20 MG/ML VIAL. IVP PRN (10:45)
[2018-10-12] MEDS: IPRATRPIUM/ALBUTEROL 0.5/2.5MG 3 ML NEBU. NEB SCH ×4 (10:45→20:25)
[2018-10-12] MEDS ORDERED: hydrALAZINE 20 MG/ML VIAL. IVP ONE (10:45)
[2018-10-12] MEDS ORDERED: ZOLPIDEM 5 MG TABLET. PO PRN (10:45)
[2018-10-12] MEDS ORDERED: SODIUM PHOSPHATES 19/7GM 133 ML ENEMA. PR PRN (10:45)
[2018-10-12] MEDS ORDERED: diphenhydrAMINE 50 MG/ML VIAL IVP PRN (10:45)
[2018-10-12] MEDS ORDERED: AZITHROMYCIN 250 MG TABLET. PO ONE (11:15)
--- NOTE | 2018-10-12 11:15 | PDOC ---
Provider Note Provider Note [id number] ?hemoptysis acute bronchitis acute exac of copd throat ca see order SCOUT BERGER MD Oct 12, 2018 11:15
--- NOTE | 2018-10-12 11:38 | NUR ---
ALBUTEROL WAS GIVEN AT 1000
--- NOTE | 2018-10-12 14:43 | EKG ---
[facility] [address] [place] [address] Test Date: 2018-10-11 Test Time: 21:52:21 Pat Name: STEPHANIE NUNEZ Department: Room: 652 1 Gender: F Fsr: : 1965 Requested By: JUSTINE WAGNER Order Number: [id number] Reading MD: George Dixon Measurements Intervals [place] Rate: 64 P: 64 SD: 164 QRS: 23 QRSD: 76 T: 59 QT: 422 QTc: 435 Interpretive Statements SINUS RHYTHM NON-SPECIFIC ST/T CHANGES Electronically Signed On 10-21-2018 12:37:05 CDT by George Dixon
--- NOTE | 2018-10-12 15:02 | RAD ---
Ventilation/perfusion lung scan. HISTORY: Productive cough and congestion, hemoptysis, indeterminate CTA, chest pain Ventilation study was done using 30 mCi xenon-133. Anterior and posterior ventilation images are normal. Perfusion images were done using 6 mCi technetium 99m MAA injected intravenously. Perfusion images are normal in appearance. There is no segmental perfusion defect. There is no ventilation perfusion mismatch. IMPRESSION: 1. Lung scan negative for a pulmonary embolus. Electronically signed by: Parveen Keating MD (10/12/2018 2:58 PM) [facility]
[2018-10-12] MEDS: cefTRIAXone IV Push 1 GM VIAL. IVP SCH (15:03)
[2018-10-12] MEDS: methylPREDNISolone SOD SUCC PF 40 MG/ML VIAL. IV SCH ×2 (15:03→21:16)
[2018-10-12] MEDS: METOPROLOL SUCC 24HR ER 25 MG TAB.ER.24H. PO SCH (15:04)
[2018-10-12] MEDS: PANTOPRAZOLE 40 MG TABLET.DR. PO SCH (15:04)
--- NOTE | 2018-10-12 15:23 | CONS ---
DATE OF CONSULTATION: 10/12/2018 I was asked to see this 53-year-old lady for abnormal CT of the chest, hemoptysis. HISTORY OF PRESENT ILLNESS: She has history of more than [id number] smoking, stopped smoking a few months ago. She has had increased shortness of breath, wheezing, cough and sputum production. She started to have hemoptysis and nose bleed for the past few days. She has had fever and chills. She denies gastroesophageal reflux symptoms. She was diagnosed with throat cancer about 3 years ago. No treatment is done. ALLERGIES: SHELLFISH. MEDICATIONS: Currently, she is on DuoNeb, Toprol, Ativan, clonidine, Tylenol. PAST MEDICAL HISTORY: COPD, history of throat cancer, hypertension, anxiety. . SOCIAL HISTORY: History of more than [id number] smoking, stopped smoking in July of this year. She used to do drugs. FAMILY HISTORY: Positive for cancer. She does not know details. REVIEW OF SYSTEMS: As mentioned as above, other systems otherwise negative. PHYSICAL EXAMINATION: GENERAL: This is an overweight lady. VITAL SIGNS: Her O2 saturation is 98%, respiratory rate 20, heart rate 84. Blood pressure 155/77, temperature 98.1. HEENT: Normocephalic, atraumatic. Pupils equal, round, reactive to light. There is shallow oropharynx. Poor dentition. NECK: There is no JVD, lymphadenopathy or thyromegaly. CARDIOVASCULAR: Regular rate and rhythm. PMI is nondisplaced. CHEST: On inspection bilateral end expiratory wheezing, dullness at the bases. ABDOMEN: Soft and obese. Bowel sounds are good. There is no mass. EXTREMITIES: There is edema. LYMPHATICS: There is no lymphadenopathy. SKIN: Chronic changes. NEUROLOGIC: Alert and oriented. LABORATORY DATA: Reviewed the following lab data. INR normal. Urine drug screen negative. WBC 8.3, hemoglobin 12.8, platelets 310. Sodium 143, potassium 4.1, chloride 106, CO2 of 30, glucose 104, BUN 15, creatinine 0.8. Total bilirubin 0.1. Troponin less than 0.01. BNP 98. CT of the chest was not a good study for pulmonary embolism. There is a right infrahilar mass-like structure, could be a mass versus enlarged lymph node. There was some prominent esophagus wall. IMPRESSION: 1. Dyspnea, multifactorial in etiology. 2. Acute exacerbation of chronic obstructive pulmonary disease. 3. Acute bronchitis. 4. Hemoptysis, could be secondary to bleeding from her throat cancer, which she states has never been treated versus acute bronchitis versus epistaxis versus others. 5. Ex-smoker. 6. Hypertension. PLAN AND RECOMMENDATIONS: 1. Titrate FiO2 to keep O2 saturation 92%. 2. Start Solu-Medrol 40 mg IV every 8 hours, first dose now. 3. Start Rocephin and azithromycin. 4. Continue bronchodilator. 5. I do recommend ENT consult. 6. I do recommend outpatient PET scan. 7. She may require bronchoscopy if her ENT exam is normal. If ENT exam is normal and she continues to have hemoptysis, I will discuss this with Dr. Hummel. 8. Protonix. 9. The esophagus wall looked abnormal. Further evaluation defer to primary doctor. I have discussed the findings and recommendations with the patient and RN. She understood and agreed to proceed with the plan. I have answered all of her questions. Thank you very much for allowing me to participate in care of this very nice lady. SCOUT BERGER M.D. : Jennifer JOB#: [id number] / [id number]
--- NOTE | 2018-10-12 15:23 | CONS ---
DATE OF CONSULTATION: 10/12/2018 REASON FOR CONSULTATION: Chest pain. HISTORY OF PRESENT ILLNESS: The patient is a 53-year-old woman with past medical history of severe tobacco abuse, who presents to the hospital in the setting of coughing and cough related chest pain. She apparently is usually on the road with her boyfriend who is a semi truck driver and does not recall any prior cardiac issues. She was admitted to [facility] in 2017 and reports that since then has been into couple other hospitals with flu-like symptoms. In this setting, over the last few days, she has had increasing cough, which is nonproductive in nature. Denies any fevers or chills, but did have musculoskeletal chest pain with these coughing spells. Upon arrival to the ER, she did not have any significant blood pressure elevation. Initial EKG and cardiac biomarkers were negative. CT of the chest was performed to rule out PE and this was inconclusive. She was given treatment for presumed PE and admitted to the floor. In talking to the patient today at bedside, she denies any specific anginal problems at home, but does have dyspnea. She admits to smoking approximately 3-4 packs a day. She does have a prior history of significant illicit drug use with positive cocaine tox screens in the past. PAST MEDICAL HISTORY: Notable for 1. COPD, possible asthma and there is concern for possible prior history of throat cancer. 2. Tobacco abuse. 3. Anxiety. FAMILY HISTORY: Noncontributory. ALLERGIES: SHELLFISH. CURRENT CARDIOVASCULAR MEDICATIONS: None. REVIEW OF SYSTEMS: As noted above in HPI. SOCIAL HISTORY: As noted above. PHYSICAL EXAMINATION: VITAL SIGNS: Afebrile, 72, 20, 155/83, 96% on room air. GENERAL: She is alert and oriented, no acute distress. HEAD AND NECK: Unremarkable. HEART: Regular rate and rhythm. LUNGS: Bilateral expiratory wheezing. ABDOMEN: Soft, nontender. EXTREMITIES: No clubbing, cyanosis or edema. NEUROLOGIC: No focal deficits. MUSCULOSKELETAL: No trauma. DIAGNOSTIC STUDIES: Troponin negative x 3. EKG is unremarkable. Coags and white blood cell count are within normal limits. Normal platelet count and hemoglobin levels. Chest CTA is notable for severe patient motion artifact, but no obvious pneumonia or pleural effusion noted. IMPRESSION: Chest pain: Noncardiac in nature, related clearly to her coughing spells, probable acute on chronic obstructive pulmonary disease exacerbation due to severe tobacco abuse. RECOMMENDATIONS: At this present time, continue treatment for her COPD, check tox screen is being done and supportive care from a cardiac standpoint. She has a normal EKG and negative biomarkers. No further cardiovascular testing necessary. Consider testing on an outpatient basis if needed. Thank you for this consultation. ALEXANDR KIRAN MD DR: MARIELLE/abhay JOB#: [id number] / [id number]
--- NOTE | 2018-10-12 16:28 | RAD ---
EXAM: Bilateral lower extremity venous Doppler sonogram. HISTORY: Pain and swelling. TECHNIQUE: Velasquez scale and color Doppler sonographic evaluation of the bilateral lower extremity veins with spectral waveform analysis was performed. FINDINGS: There is normal color flow, normal compressibility and there are normal spectral waveforms in the common femoral, superficial femoral, popliteal, posterior tibial and greater saphenous veins. IMPRESSION: No Doppler evidence of lower extremity deep venous thrombosis. Electronically signed by: Josi Soto MD (10/12/2018 4:25 PM) [facility]
[2018-10-12 17:40] LABS: INFLUENZA A PATIENT NEGATIVE (NEGATIVE); INFLUENZA B PATIENT NEGATIVE (NEGATIVE)
[2018-10-12] MEDS: LACTOBACILLUS RHAMNOSUS GG 1 CAPSULE. PO SCH (21:16)
[2018-10-13] MEDS: IPRATRPIUM/ALBUTEROL 0.5/2.5MG 3 ML NEBU. NEB SCH ×4 (02:45→11:49)
[2018-10-13 03:05] VITALS: BP 121/64
[2018-10-13] MEDS: methylPREDNISolone SOD SUCC PF 40 MG/ML VIAL. IV SCH (06:00)
[2018-10-13 07:23] LABS: BASO # 0.1 x10^3/uL (0.0-0.2); BASO % 0 % (0-3); EOS % 0 % (0-3); HEMATOCRIT 39.8 % (36.0-47.0); HEMOGLOBIN 12.9 g/dL (12.0-15.5); LYMPH # 1.6 x10^3/uL (1.0-4.8); LYMPH % 7 % (24-48); MEAN CORPUSCULAR HEMOGLOBIN 25 pg (25-35); MEAN CORPUSCULAR HGB CONC 32 g/dL (31-37); MEAN CORPUSCULAR VOLUME 76 fL (79-100); MONO # 0.4 x10^3/uL (0.0-1.1); MONO % 2 % (0-9); NEUT % 90 % (31-73); PLATELET COUNT 322 x10^3/uL (140-400); RED BLOOD COUNT 5.24 x10^6/uL (3.50-5.40); RED CELL DISTRIBUTION WIDTH 15.2 % (11.5-14.5); WHITE BLOOD COUNT 21.1 x10^3/uL (4.0-11.0)
[2018-10-13 07:37] VITALS: BP 127/71
--- NOTE | 2018-10-13 07:46 | PDOC ---
PULMONARY PROGRESS NOTES Subjective no hemoptysis, cough, sob better, no hemoptysis Vitals Vital Signs Date Time Temp Pulse Resp B/P (MAP) Pulse Ox O2 Delivery O2 Flow Rate FiO2 10/13/18 07:37 98.3 89 18 127/71 (89) 96 Room Air 98.3 ROS: No Nausea, No Chest Pain General: Alert HEENT: Other (nc at perrl) Lungs: Crackles Cardiovascular: S1, S2 Abdomen: Soft, Non-tender Neuro Exam: Alert Extremities: Other (edema) Labs Laboratory Tests Test 10/11/18 21:15 10/12/18 01:10 10/12/18 02:55 10/12/18 06:00 White Blood Count 8.3 x10^3/uL (4.0-11.0) Red Blood Count 5.13 x10^6/uL (3.50-5.40) Hemoglobin 12.8 g/dL (12.0-15.5) Hematocrit 38.9 % (36.0-47.0) Mean Corpuscular Volume 76 fL (79-100) Mean Corpuscular Hemoglobin 25 pg (25-35) Mean Corpuscular Hemoglobin Concent 33 g/dL (31-37) Red Cell Distribution Width 15.2 % (11.5-14.5) Platelet Count 310 x10^3/uL (140-400) Neutrophils (%) (Auto) 62 % (31-73) Lymphocytes (%) (Auto) 26 % (24-48) Monocytes (%) (Auto) 6 % (0-9) Eosinophils (%) (Auto) 5 % (0-3) Basophils (%) (Auto) 1 % (0-3) Neutrophils # (Auto) 5.2 x10^3uL (1.8-7.7) Lymphocytes # (Auto) 2.2 x10^3/uL (1.0-4.8) Monocytes # (Auto) 0.5 x10^3/uL (0.0-1.1) Eosinophils # (Auto) 0.4 x10^3/uL (0.0-0.7) Basophils # (Auto) 0.1 x10^3/uL (0.0-0.2) Prothrombin Time 12.0 SEC (11.7-14.0) Prothromb Time International Ratio 0.9 (0.8-1.1) Sodium Level 143 mmol/L (136-145) Potassium Level 4.1 mmol/L (3.5-5.1) Chloride Level 106 mmol/L (98-107) Carbon Dioxide Level 30 mmol/L (21-32) Anion Gap 7 (6-14) Blood Urea Nitrogen 15 mg/dL (7-20) Creatinine 0.8 mg/dL (0.6-1.0) Estimated GFR (Cockcroft-Gault) 91.1 BUN/Creatinine Ratio 19 (6-20) Glucose Level 104 mg/dL (70-99) Lactic Acid Level 0.8 mmol/L (0.4-2.0) Calcium Level 8.7 mg/dL (8.5-10.1) Magnesium Level 2.0 mg/dL (1.8-2.4) Total Bilirubin 0.1 mg/dL (0.2-1.0) Aspartate Amino Transf (AST/SGOT) 11 U/L (15-37) Alanine Aminotransferase (ALT/SGPT) 12 U/L (14-59) Alkaline Phosphatase 112 U/L (46-116) Creatine Kinase 58 U/L (26-192) Creatine Kinase MB (Mass) < 0.5 ng/mL (0.0-3.6) Creatine Kinase MB Relative Index % (0-4) Troponin I Quantitative < 0.017 ng/mL (0.000-0.055) < 0.017 ng/mL (0.000-0.055) < 0.017 ng/mL (0.000-0.055) MC-Api-L-Type Natriuretic Peptide 98 pg/mL (0-124) Total Protein 6.9 g/dL (6.4-8.2) Albumin 2.9 g/dL (3.4-5.0) Albumin/Globulin Ratio 0.7 (1.0-1.7) Lipase 128 U/L (73-393) Urine Collection Type Unknown Urine Color Yellow Urine Clarity Clear Urine pH 6.5 Urine Specific [place] >=1.030 Urine Protein Negative mg/dL (NEG-TRACE) Urine Glucose (UA) Negative mg/dL (NEG) Urine Ketones (Stick) Negative mg/dL (NEG) Urine Blood Negative (NEG) Urine Nitrite Negative (NEG) Urine Bilirubin Negative (NEG) Urine Urobilinogen Dipstick 0.2 mg/dL (0.2 mg/dL) Urine Leukocyte Esterase Negative (NEG) Urine RBC Occ /HPF (0-2) Urine WBC Occ /HPF (0-4) Urine Squamous Epithelial Cells Few /LPF Urine Bacteria Moderate /HPF (0-FEW) Test 10/12/18 07:08 10/12/18 09:13 10/12/18 11:17 10/12/18 16:35 Glucose (Fingerstick) 131 mg/dL (70-99) 110 mg/dL (70-99) Urine Opiates Screen Neg (NEG) Urine Methadone Screen Neg (NEG) Urine Barbiturates Neg (NEG) Urine Phencyclidine Screen Neg (NEG) Urine Amphetamine/Methamphetamine Neg (NEG) Urine Benzodiazepines Screen Neg (NEG) Urine Cocaine Screen Neg (NEG) Urine Cannabinoids Screen Neg (NEG) Urine Ethyl Alcohol Neg (NEG) Influenza Type A Antigen Negative (NEGATIVE) Influenza Type B Antigen Negative (NEGATIVE) Test 10/12/18 16:44 10/12/18 20:23 10/13/18 06:22 10/13/18 07:01 Glucose (Fingerstick) 112 mg/dL (70-99) 135 mg/dL (70-99) 150 mg/dL (70-99) White Blood Count 21.1 x10^3/uL (4.0-11.0) Red Blood Count 5.24 x10^6/uL (3.50-5.40) Hemoglobin 12.9 g/dL (12.0-15.5) Hematocrit 39.8 % (36.0-47.0) Mean Corpuscular Volume 76 fL (79-100) Mean Corpuscular Hemoglobin 25 pg (25-35) Mean Corpuscular Hemoglobin Concent 32 g/dL (31-37) Red Cell Distribution Width 15.2 % (11.5-14.5) Platelet Count 322 x10^3/uL (140-400) Neutrophils (%) (Auto) 90 % (31-73) Lymphocytes (%) (Auto) 7 % (24-48) Monocytes (%) (Auto) 2 % (0-9) Eosinophils (%) (Auto) 0 % (0-3) Basophils (%) (Auto) 0 % (0-3) Neutrophils # (Auto) 19.0 x10^3uL (1.8-7.7) Lymphocytes # (Auto) 1.6 x10^3/uL (1.0-4.8) Monocytes # (Auto) 0.4 x10^3/uL (0.0-1.1) Eosinophils # (Auto) 0.0 x10^3/uL (0.0-0.7) Basophils # (Auto) 0.1 x10^3/uL (0.0-0.2) Laboratory Tests Test 10/12/18 09:13 10/12/18 11:17 10/12/18 16:35 10/12/18 16:44 Urine Opiates Screen Neg (NEG) Urine Methadone Screen Neg (NEG) Urine Barbiturates Neg (NEG) Urine Phencyclidine Screen Neg (NEG) Urine Amphetamine/Methamphetamine Neg (NEG) Urine Benzodiazepines Screen Neg (NEG) Urine Cocaine Screen Neg (NEG) Urine Cannabinoids Screen Neg (NEG) Urine Ethyl Alcohol Neg (NEG) Glucose (Fingerstick) 110 mg/dL (70-99) 112 mg/dL (70-99) Influenza Type A Antigen Negative (NEGATIVE) Influenza Type B Antigen Negative (NEGATIVE) Test 10/12/18 20:23 10/13/18 06:22 10/13/18 07:01 Glucose (Fingerstick) 135 mg/dL (70-99) 150 mg/dL (70-99) White Blood Count 21.1 x10^3/uL (4.0-11.0) Red Blood Count 5.24 x10^6/uL (3.50-5.40) Hemoglobin 12.9 g/dL (12.0-15.5) Hematocrit 39.8 % (36.0-47.0) Mean Corpuscular Volume 76 fL (79-100) Mean Corpuscular Hemoglobin 25 pg (25-35) Mean Corpuscular Hemoglobin Concent 32 g/dL (31-37) Red Cell Distribution Width 15.2 % (11.5-14.5) Platelet Count 322 x10^3/uL (140-400) Neutrophils (%) (Auto) 90 % (31-73) Lymphocytes (%) (Auto) 7 % (24-48) Monocytes (%) (Auto) 2 % (0-9) Eosinophils (%) (Auto) 0 % (0-3) Basophils (%) (Auto) 0 % (0-3) Neutrophils # (Auto) 19.0 x10^3uL (1.8-7.7) Lymphocytes # (Auto) 1.6 x10^3/uL (1.0-4.8) Monocytes # (Auto) 0.4 x10^3/uL (0.0-1.1) Eosinophils # (Auto) 0.0 x10^3/uL (0.0-0.7) Basophils # (Auto) 0.1 x10^3/uL (0.0-0.2) Medications Active Scripts Medications Dose Route/Sig Max Daily Dose Days Date Category No Known Medications Prior To Admisstion (Info) Each 1 Each 06/06/17 Reported Impression . IMPRESSION: 1. Dyspnea, multifactorial in etiology. 2. Acute exacerbation of chronic obstructive pulmonary disease. 3. Acute bronchitis. 4. Hemoptysis, could be secondary to bleeding from her throat cancer, which she states has never been treated versus acute bronchitis versus epistaxis versus others. resolved 5. Ex-smoker. 6. Hypertension. Plan . PLAN AND RECOMMENDATIONS: 1. Titrate FiO2 to keep O2 saturation 92%. 2. change Solu-Medrol to 40 mg IV every 12 hours. 3. contt Rocephin and azithromycin. 4. Continue bronchodilator. 5. I do recommend ENT consult. agree w ct of neck 6. I do recommend outpatient whole body PET scan. 7. cont not smoking 8. Protonix. 9. The esophagus wall looked abnormal. Further evaluation defer to primary doctor. discussed w pt SCOUT August MD Oct 13, 2018 07:46
[2018-10-13 07:54] LABS: CALCIUM 9.1 mg/dL (8.5-10.1); CREATININE 0.7 mg/dL (0.6-1.0); GFR 106.3; POTASSIUM 3.9 mmol/L (3.5-5.1)
[2018-10-13] MEDS: INSULIN LISPRO 300 UNITS/3 ML INSULN.PEN. SQ SCH ×2 (08:00→12:00)
[2018-10-13] MEDS: LACTOBACILLUS RHAMNOSUS GG 1 CAPSULE. PO SCH (08:29)
[2018-10-13] MEDS: PANTOPRAZOLE 40 MG TABLET.DR. PO SCH (08:30)
[2018-10-13] MEDS: METOPROLOL SUCC 24HR ER 25 MG TAB.ER.24H. PO SCH (08:30)
[2018-10-13 09:42] LABS: % BANDS 12 % (0-9); % SEGS 80 % (35-66)
[2018-10-13 09:43] LABS: % LYMPHS 7 % (24-48); % MONOS 1 % (0-10)
[2018-10-13 09:47] LABS: ANISOCYTOSIS SLIGHT; PLT ESTIMATE ADEQUATE (ADEQUATE)
[2018-10-13 09:49] LABS: TARGET CELLS FEW
[2018-10-13] MEDS ORDERED: IOHEXOL 300 MG/ML 100ML VIAL. IV ONE (10:15)
[2018-10-13] MEDS ORDERED: CONTRAST GIVEN. MC PRN ×2 (10:30)
[2018-10-13 10:55] VITALS: BP 106/60
[2018-10-13] MEDS ORDERED: AZITHROMYCIN 250 MG TABLET. PO ONE (11:15)
--- NOTE | 2018-10-13 11:36 | RAD ---
CT neck with contrast. HISTORY: Possible mass, chest pain, hemoptysis CT scan of the neck was done using 70 mL Omnipaque patent 300 contrast. Visualized portion of the brain is unremarkable. Ventricles are normal in size. There is mild mucosal thickening in a few ethmoid air cells. Frontal, sphenoid and maxillary sinuses are clear. There is prominence in swelling of the adenoids, tonsils and lingual tonsils. There is no retropharyngeal soft tissue swelling. Epiglottis appears normal. There is a mass in the upper larynx with narrowing of the larynx. Level of vocal cords appear normal. The proximal trachea appears normal. There is no upper mediastinal adenopathy. Upper lobes of the lungs are clear. Thyroid is homogeneous. There is no adenopathy in the neck. Parotid and submandibular glands are unremarkable. There is mild spurring at C5-6 and C6-7 with mild disc space narrowing at C5-6. IMPRESSION: 1. Soft tissue swelling of the adenoids, tonsils and lingual tonsils. 2. Normal epiglottis. 3. Mass in the proximal larynx with soft tissue swelling and narrowing. PQRS Compliance Statement: One or more of the following individualized dose reduction techniques were utilized for this examination: 1. Automated exposure control 2. Adjustment of the mA and/or kV according to patient size 3. Use of iterative reconstruction technique Electronically signed by: Parveen Keating MD (10/13/2018 11:33 AM) [facility]
--- NOTE | 2018-10-13 11:42 | PDOC ---
PROGRESS NOTES History of Present Illness History of Present Illness Assessment/Plan Assessment/Plan IMPRESSION 1. Chest pain 2.on CTA right infrahilar region there is a masslike structure identified. Could be secondary to an enlarged lymph node within the area or a pulmonary nodule 3.Chest pain 4.COPD (chronic obstructive pulmonary disease) 5. Tobacco abuse 6. remote hx cocaine abuse, last use 4 months [employer] 7. epistaxis 8. uncontrolled hypertension 9. Mass in the proximal larynx with soft tissue swelling and narrowing. PLAN PULM CONSULT CARD CONSULT d/w dr Mae tele serial troponin i echo iv hydralazine prn 10mg q 4 hrs prn bp support toprol xl 25 mg po daily scd's smoking cessation education provided ct soft tissues of neck NOTED, MASS PT PREFERS TO LEAVE AMA TODAY, DRIVE DIRECTLY TO [facility], WE DO NOT HAVE A ENT SPECIALIST ON STAFF HERE THAT CAN SEE TODAY 36 min pt exam, D/C PLANNING , chart review, > 50% of time with exam, chart review, pt care coordination Vitals Vitals Vital Signs Date Time Temp Pulse Resp B/P (MAP) Pulse Ox O2 Delivery O2 Flow Rate FiO2 10/13/18 10:55 98.8 77 18 106/60 (75) 99 Room Air 98.8 Physical Exam General: Alert, Oriented X3, Cooperative, No acute distress, mild distress Heart: Regular rate, Normal S1 Lungs: Clear, Crackles Abdomen: Normal bowel sounds Extremities: No clubbing, No cyanosis, No edema Skin: No breakdown Labs LABS REASON: possible mass PROCEDURE: CT SOFT TISSUE NECK W/CONTRAST CT neck with contrast. HISTORY: Possible mass, chest pain, hemoptysis CT scan of the neck was done using 70 mL Omnipaque patent 300 contrast. Visualized portion of the brain is unremarkable. Ventricles are normal in size. There is mild mucosal thickening in a few ethmoid air cells. Frontal, sphenoid and maxillary sinuses are clear. There is prominence in swelling of the adenoids, tonsils and lingual tonsils. There is no retropharyngeal soft tissue swelling. Epiglottis appears normal. There is a mass in the upper larynx with narrowing of the larynx. Level of vocal cords appear normal. The proximal trachea appears normal. There is no upper mediastinal adenopathy. Upper lobes of the lungs are clear. Thyroid is homogeneous. There is no adenopathy in the neck. Parotid and submandibular glands are unremarkable. There is mild spurring at C5-6 and C6-7 with mild disc space narrowing at C5-6. IMPRESSION: 1. Soft tissue swelling of the adenoids, tonsils and lingual tonsils. 2. Normal epiglottis. 3. Mass in the proximal larynx with soft tissue swelling and narrowing. PQRS Compliance Statement: One or more of the following individualized dose reduction techniques were utilized for this examination: 1. Automated exposure control 2. Adjustment of the mA and/or kV according to patient size 3. Use of iterative reconstruction technique Laboratory Tests Test 10/12/18 16:35 10/12/18 16:44 10/12/18 20:23 10/13/18 06:22 Influenza Type A Antigen Negative (NEGATIVE) Influenza Type B Antigen Negative (NEGATIVE) Glucose (Fingerstick) 112 mg/dL (70-99) 135 mg/dL (70-99) White Blood Count 21.1 x10^3/uL (4.0-11.0) Red Blood Count 5.24 x10^6/uL (3.50-5.40) Hemoglobin 12.9 g/dL (12.0-15.5) Hematocrit 39.8 % (36.0-47.0) Mean Corpuscular Volume 76 fL (79-100) Mean Corpuscular Hemoglobin 25 pg (25-35) Mean Corpuscular Hemoglobin Concent 32 g/dL (31-37) Red Cell Distribution Width 15.2 % (11.5-14.5) Platelet Count 322 x10^3/uL (140-400) Neutrophils (%) (Auto) 90 % (31-73) Lymphocytes (%) (Auto) 7 % (24-48) Monocytes (%) (Auto) 2 % (0-9) Eosinophils (%) (Auto) 0 % (0-3) Basophils (%) (Auto) 0 % (0-3) Neutrophils # (Auto) 19.0 x10^3uL (1.8-7.7) Lymphocytes # (Auto) 1.6 x10^3/uL (1.0-4.8) Monocytes # (Auto) 0.4 x10^3/uL (0.0-1.1) Eosinophils # (Auto) 0.0 x10^3/uL (0.0-0.7) Basophils # (Auto) 0.1 x10^3/uL (0.0-0.2) Segmented Neutrophils % 80 % (35-66) Band Neutrophils % 12 % (0-9) Lymphocytes % 7 % (24-48) Monocytes % 1 % (0-10) Platelet Estimate Adequate (ADEQUATE) Anisocytosis Slight Target Cells Few Sodium Level 141 mmol/L (136-145) Potassium Level 3.9 mmol/L (3.5-5.1) Chloride Level 105 mmol/L (98-107) Carbon Dioxide Level 24 mmol/L (21-32) Anion Gap 12 (6-14) Blood Urea Nitrogen 15 mg/dL (7-20) Creatinine 0.7 mg/dL (0.6-1.0) Estimated GFR (Cockcroft-Gault) 106.3 Glucose Level 134 mg/dL (70-99) Calcium Level 9.1 mg/dL (8.5-10.1) Troponin I Quantitative < 0.017 ng/mL (0.000-0.055) Test 10/13/18 07:01 Glucose (Fingerstick) 150 mg/dL (70-99) Assessment and Plan Assessmemt and Plan Problems Medical Problems: (1) Chest pain Status: Acute (2) COPD (chronic obstructive pulmonary disease) Status: Acute (3) Hemoptysis Status: Acute (4) Pulmonary nodule Status: Acute Comment Review of Relevant I have reviewed the following items asaf (where applicable) has been applied. Labs Laboratory Tests Test 10/11/18 21:15 10/12/18 01:10 10/12/18 02:55 10/12/18 06:00 White Blood Count 8.3 x10^3/uL (4.0-11.0) Red Blood Count 5.13 x10^6/uL (3.50-5.40) Hemoglobin 12.8 g/dL (12.0-15.5) Hematocrit 38.9 % (36.0-47.0) Mean Corpuscular Volume 76 fL (79-100) Mean Corpuscular Hemoglobin 25 pg (25-35) Mean Corpuscular Hemoglobin Concent 33 g/dL (31-37) Red Cell Distribution Width 15.2 % (11.5-14.5) Platelet Count 310 x10^3/uL (140-400) Neutrophils (%) (Auto) 62 % (31-73) Lymphocytes (%) (Auto) 26 % (24-48) Monocytes (%) (Auto) 6 % (0-9) Eosinophils (%) (Auto) 5 % (0-3) Basophils (%) (Auto) 1 % (0-3) Neutrophils # (Auto) 5.2 x10^3uL (1.8-7.7) Lymphocytes # (Auto) 2.2 x10^3/uL (1.0-4.8) Monocytes # (Auto) 0.5 x10^3/uL (0.0-1.1) Eosinophils # (Auto) 0.4 x10^3/uL (0.0-0.7) Basophils # (Auto) 0.1 x10^3/uL (0.0-0.2) Prothrombin Time 12.0 SEC (11.7-14.0) Prothromb Time International Ratio 0.9 (0.8-1.1) Sodium Level 143 mmol/L (136-145) Potassium Level 4.1 mmol/L (3.5-5.1) Chloride Level 106 mmol/L (98-107) Carbon Dioxide Level 30 mmol/L (21-32) Anion Gap 7 (6-14) Blood Urea Nitrogen 15 mg/dL (7-20) Creatinine 0.8 mg/dL (0.6-1.0) Estimated GFR (Cockcroft-Gault) 91.1 BUN/Creatinine Ratio 19 (6-20) Glucose Level 104 mg/dL (70-99) Lactic Acid Level 0.8 mmol/L (0.4-2.0) Calcium Level 8.7 mg/dL (8.5-10.1) Magnesium Level 2.0 mg/dL (1.8-2.4) Total Bilirubin 0.1 mg/dL (0.2-1.0) Aspartate Amino Transf (AST/SGOT) 11 U/L (15-37) Alanine Aminotransferase (ALT/SGPT) 12 U/L (14-59) Alkaline Phosphatase 112 U/L (46-116) Creatine Kinase 58 U/L (26-192) Creatine Kinase MB (Mass) < 0.5 ng/mL (0.0-3.6) Creatine Kinase MB Relative Index % (0-4) Troponin I Quantitative < 0.017 ng/mL (0.000-0.055) < 0.017 ng/mL (0.000-0.055) < 0.017 ng/mL (0.000-0.055) GA-Vmc-A-Type Natriuretic Peptide 98 pg/mL (0-124) Total Protein 6.9 g/dL (6.4-8.2) Albumin 2.9 g/dL (3.4-5.0) Albumin/Globulin Ratio 0.7 (1.0-1.7) Lipase 128 U/L (73-393) Urine Collection Type Unknown Urine Color Yellow Urine Clarity Clear Urine pH 6.5 Urine Specific [place] >=1.030 Urine Protein Negative mg/dL (NEG-TRACE) Urine Glucose (UA) Negative mg/dL (NEG) Urine Ketones (Stick) Negative mg/dL (NEG) Urine Blood Negative (NEG) Urine Nitrite Negative (NEG) Urine Bilirubin Negative (NEG) Urine Urobilinogen Dipstick 0.2 mg/dL (0.2 mg/dL) Urine Leukocyte Esterase Negative (NEG) Urine RBC Occ /HPF (0-2) Urine WBC Occ /HPF (0-4) Urine Squamous Epithelial Cells Few /LPF Urine Bacteria Moderate /HPF (0-FEW) Test 10/12/18 07:08 10/12/18 09:13 10/12/18 11:17 10/12/18 16:35 Glucose (Fingerstick) 131 mg/dL (70-99) 110 mg/dL (70-99) Urine Opiates Screen Neg (NEG) Urine Methadone Screen Neg (NEG) Urine Barbiturates Neg (NEG) Urine Phencyclidine Screen Neg (NEG) Urine Amphetamine/Methamphetamine Neg (NEG) Urine Benzodiazepines Screen Neg (NEG) Urine Cocaine Screen Neg (NEG) Urine Cannabinoids Screen Neg (NEG) Urine Ethyl Alcohol Neg (NEG) Influenza Type A Antigen Negative (NEGATIVE) Influenza Type B Antigen Negative (NEGATIVE) Test 10/12/18 16:44 10/12/18 20:23 10/13/18 06:22 10/13/18 07:01 Glucose (Fingerstick) 112 mg/dL (70-99) 135 mg/dL (70-99) 150 mg/dL (70-99) White Blood Count 21.1 x10^3/uL (4.0-11.0) Red Blood Count 5.24 x10^6/uL (3.50-5.40) Hemoglobin 12.9 g/dL (12.0-15.5) Hematocrit 39.8 % (36.0-47.0) Mean Corpuscular Volume 76 fL (79-100) Mean Corpuscular Hemoglobin 25 pg (25-35) Mean Corpuscular Hemoglobin Concent 32 g/dL (31-37) Red Cell Distribution Width 15.2 % (11.5-14.5) Platelet Count 322 x10^3/uL (140-400) Neutrophils (%) (Auto) 90 % (31-73) Lymphocytes (%) (Auto) 7 % (24-48) Monocytes (%) (Auto) 2 % (0-9) Eosinophils (%) (Auto) 0 % (0-3) Basophils (%) (Auto) 0 % (0-3) Neutrophils # (Auto) 19.0 x10^3uL (1.8-7.7) Lymphocytes # (Auto) 1.6 x10^3/uL (1.0-4.8) Monocytes # (Auto) 0.4 x10^3/uL (0.0-1.1) Eosinophils # (Auto) 0.0 x10^3/uL (0.0-0.7) Basophils # (Auto) 0.1 x10^3/uL (0.0-0.2) Segmented Neutrophils % 80 % (35-66) Band Neutrophils % 12 % (0-9) Lymphocytes % 7 % (24-48) Monocytes % 1 % (0-10) Platelet Estimate Adequate (ADEQUATE) Anisocytosis Slight Target Cells Few Sodium Level 141 mmol/L (136-145) Potassium Level 3.9 mmol/L (3.5-5.1) Chloride Level 105 mmol/L (98-107) Carbon Dioxide Level 24 mmol/L (21-32) Anion Gap 12 (6-14) Blood Urea Nitrogen 15 mg/dL (7-20) Creatinine 0.7 mg/dL (0.6-1.0) Estimated GFR (Cockcroft-Gault) 106.3 Glucose Level 134 mg/dL (70-99) Calcium Level 9.1 mg/dL (8.5-10.1) Troponin I Quantitative < 0.017 ng/mL (0.000-0.055) Laboratory Tests Test 10/12/18 16:35 10/12/18 16:44 10/12/18 20:23 10/13/18 06:22 Influenza Type A Antigen Negative (NEGATIVE) Influenza Type B Antigen Negative (NEGATIVE) Glucose (Fingerstick) 112 mg/dL (70-99) 135 mg/dL (70-99) White Blood Count 21.1 x10^3/uL (4.0-11.0) Red Blood Count 5.24 x10^6/uL (3.50-5.40) Hemoglobin 12.9 g/dL (12.0-15.5) Hematocrit 39.8 % (36.0-47.0) Mean Corpuscular Volume 76 fL (79-100) Mean Corpuscular Hemoglobin 25 pg (25-35) Mean Corpuscular Hemoglobin Concent 32 g/dL (31-37) Red Cell Distribution Width 15.2 % (11.5-14.5) Platelet Count 322 x10^3/uL (140-400) Neutrophils (%) (Auto) 90 % (31-73) Lymphocytes (%) (Auto) 7 % (24-48) Monocytes (%) (Auto) 2 % (0-9) Eosinophils (%) (Auto) 0 % (0-3) Basophils (%) (Auto) 0 % (0-3) Neutrophils # (Auto) 19.0 x10^3uL (1.8-7.7) Lymphocytes # (Auto) 1.6 x10^3/uL (1.0-4.8) Monocytes # (Auto) 0.4 x10^3/uL (0.0-1.1) Eosinophils # (Auto) 0.0 x10^3/uL (0.0-0.7) Basophils # (Auto) 0.1 x10^3/uL (0.0-0.2) Segmented Neutrophils % 80 % (35-66) Band Neutrophils % 12 % (0-9) Lymphocytes % 7 % (24-48) Monocytes % 1 % (0-10) Platelet Estimate Adequate (ADEQUATE) Anisocytosis Slight Target Cells Few Sodium Level 141 mmol/L (136-145) Potassium Level 3.9 mmol/L (3.5-5.1) Chloride Level 105 mmol/L (98-107) Carbon Dioxide Level 24 mmol/L (21-32) Anion Gap 12 (6-14) Blood Urea Nitrogen 15 mg/dL (7-20) Creatinine 0.7 mg/dL (0.6-1.0) Estimated GFR (Cockcroft-Gault) 106.3 Glucose Level 134 mg/dL (70-99) Calcium Level 9.1 mg/dL (8.5-10.1) Troponin I Quantitative < 0.017 ng/mL (0.000-0.055) Test 10/13/18 07:01 Glucose (Fingerstick) 150 mg/dL (70-99) Medications Current Medications Sodium Chloride 1,000 ml @ 1,000 mls/hr 1X ONCE IV Last administered on at 21:25; Start 10/11/18 at 21:00; Stop 10/11/18 at 21:59; Status DC Albuterol/ Ipratropium (Duoneb) 3 ml 1X ONCE NEB Last administered on at 21:57; Start 10/11/18 at 21:30; Stop 10/11/18 at 21:31; Status DC Dexamethasone Sodium Phosphate (Decadron) 10 mg 1X ONCE IV Last administered on 10/11/18at 21:24; Start 10/11/18 at 21:30; Stop 10/11/18 at 21:31; Status DC Iohexol (Omnipaque 350 Mg/ml) 100 ml 1X ONCE IV Last administered on at 22:24; Start 10/11/18 at 22:30; Stop 10/11/18 at 22:31; Status DC Info (CONTRAST GIVEN -- Rx MONITORING) 1 each PRN DAILY PRN MC SEE COMMENTS; Start 10/11/18 at 22:00; Stop 10/13/18 at 21:59; Status Cancel Enoxaparin Sodium (Lovenox 100mg Syringe) 100 mg 1X ONCE SQ Last administered on 10/12/18at 00:21; Start 10/12/18 at 00:30; Stop 10/12/18 at 00:31; Status DC Ondansetron HCl (Zofran) 4 mg PRN Q8HRS PRN IV NAUSEA/VOMITING 1ST CHOICE; Start 10/12/18 at 00:00; Stop 10/12/18 at 10:56; Status DC Insulin Human Lispro (HumaLOG) 0-5 UNITS TIDWMEALS SQ ; Start 10/12/18 at 08:00 Dextrose (Dextrose 50%-Water Syringe) 12.5 gm PRN Q15MIN PRN IV SEE COMMENTS; Start 10/12/18 at 00:00 Albuterol Sulfate (Ventolin Neb Soln) 2.5 mg PRN Q4HRS PRN NEB WHEEZING Last administered on 10/12/18at 09:48; Start 10/12/18 at 00:15 Hydralazine HCl (Apresoline Inj) 10 mg 1X ONCE IVP Last administered on at 10:42; Start 10/12/18 at 10:45; Stop 10/12/18 at 10:46; Status DC Hydralazine HCl (Apresoline Inj) 10 mg PRN Q4HRS PRN IVP ELEVATED BP, SEE COMMENTS; Start 10/12/18 at 10:45 Metoprolol Succinate (Toprol Xl) 25 mg DAILY PO Last administered on 10/13/18at 08:30; Start 10/12/18 at 11:00 Sodium Chloride (Normal Saline Flush 3ml) 3 ml QSHIFT PRN IV AFTER MEDS AND BLOOD DRAWS; Start 10/12/18 at 10:45 Ondansetron HCl (Zofran) 4 mg PRN Q4HRS PRN IV NAUSEA/VOMITING; Start 10/12/18 at 10:45 Zolpidem Tartrate (Ambien) 5 mg PRN QHS PRN PO INSOMNIA Last administered on at 21:16; Start 10/12/18 at 10:45 Acetaminophen (Tylenol) 650 mg PRN Q4HRS PRN PO TEMP OVER 100.4F OR HEADACHE; Start 10/12/18 at 10:45 Al Hydroxide/Mg Hydroxide (Mylanta Plus Xs) 30 ml PRN DAILY PRN PO HEARTBURN / GAS; Start 10/12/18 at 10:45 Clonidine HCl (Catapres) 0.1 mg PRN Q6HRS PRN PO SBP>160 OR DBP>90; Start 10/12 at 10:45 Sodium Monofluorophosphate (Fleet Adult) 133 ml PRN DAILY PRN [place] CONSTIPATION; Start 10/12/18 at 10:45 Diphenhydramine HCl (Benadryl) 25 mg PRN Q4HRS PRN IVP ITCHING; Start 10/12/18 at 10:45 Docusate Sodium (Colace) 100 mg PRN BID PRN PO CONSTIPATION; Start 10/12/18 at 10:45 Albuterol/ Ipratropium (Duoneb) 3 ml Q4H NEB Last administered on 10/13/18at 07: 49; Start 10/12/18 at 10:45 Guaifenesin (Robitussin) 200 mg PRN Q4HRS PRN PO COUGH; Start 10/12/18 at 10:45 Lorazepam (Ativan) 0.5 mg PRN Q4HRS PRN PO ANXIETY / AGITATION Last administered on 10/12/18at 21:16; Start 10/12/18 at 10:45 Ceftriaxone Sodium (Rocephin) 1 gm Q24H IVP Last administered on 10/12/18at 15: 03; Start 10/12/18 at 11:15 Azithromycin (Zithromax) 500 mg 1X ONCE PO Last administered on 10/12/18at 15: 04; Start 10/12/18 at 11:15; Stop 10/12/18 at 11:16; Status DC Azithromycin (Zithromax) 250 mg 1X ONCE PO ; Start 10/13/18 at 11:15; Stop at 11:16; Status DC Methylprednisolone Sodium Succinate (SOLU-Medrol 40MG VIAL) 40 mg Q8HRS IV Last administered on 10/13/18at 06:00; Start 10/12/18 at 11:15 Pantoprazole Sodium (Protonix) 40 mg DAILYAC PO Last administered on 10/13/18at 08:30; Start 10/12/18 at 11:15 Lactobacillus Rhamnosus (Culturelle) 1 cap BID PO Last administered on at 08:29; Start 10/12/18 at 21:00 Iohexol (Omnipaque 300 Mg/ml) 75 ml 1X ONCE IV ; Start 10/13/18 at 10:15; Stop 10/13/18 at 10:17; Status DC Info (CONTRAST GIVEN -- Rx MONITORING) 1 each PRN DAILY PRN MC SEE COMMENTS; Start 10/13/18 at 10:30; Stop 10/15/18 at 10:29 Info (CONTRAST GIVEN -- Rx MONITORING) 1 each PRN DAILY PRN MC SEE COMMENTS; Start 10/13/18 at 10:30; Stop 10/15/18 at 10:29 Active Scripts Active Reported No Known Medications Prior To Admisstion (Info) Each 1 Each MC Vitals/I & O Vital Sign - Last 24 Hours 10/12/18 10/12/18 10/12/18 10/12/18 13:06 15:04 15:13 16:53 Temp 98.6 98.6 Pulse 90 91 Resp 18 B/P (MAP) 141/65 141/66 (91) Pulse Ox 100 98 O2 Delivery Room Air Room Air Room Air 10/12/18 10/12/18 10/12/18 10/12/18 19:05 20:00 20:32 23:05 Temp 98.6 99.2 98.6 99.2 Pulse 67 94 Resp 18 18 B/P (MAP) 140/68 (92) 156/82 (106) Pulse Ox 99 98 98 O2 Delivery Room Air Room Air Room Air Room Air 10/13/18 10/13/18 10/13/18 10/13/18 03:05 07:37 07:49 08:00 Temp 98.3 98.3 98.3 98.3 Pulse 71 89 Resp 20 18 B/P (MAP) 121/64 (83) 127/71 (89) Pulse Ox 96 96 98 O2 Delivery Room Air Room Air Room Air Room Air 10/13/18 10/13/18 08:30 10:55 Temp 98.8 98.8 Pulse 89 77 Resp 18 B/P (MAP) 127/71 106/60 (75) Pulse Ox 99 O2 Delivery Room Air Intake and Output 10/12/18 10/12/18 10/13/18 15:00 23:00 07:00 Intake Total 1080 ml 880 ml 800 ml Output Total 500 ml 800 ml 650 ml Balance 580 ml 80 ml 150 ml KARINA HURLEY MD Oct 13, 2018 11:42
[2018-10-13] MEDS: cefTRIAXone IV Push 1 GM VIAL. IVP SCH (12:08)
--- NOTE | 2018-10-13 12:11 | PDOC3 ---
Discharge Summary Date of Admission: Oct 12, 2018 Date of Discharge: Oct 13, 2018 Follow-Up: 1-2 days Admitting Diagnosis comment: DISCHARGE DX Assessment/Plan IMPRESSION 1. Chest pain 2.on CTA right infrahilar region there is a masslike structure identified. Could be secondary to an enlarged lymph node within the area or a pulmonary nodule 3.Chest pain 4.COPD (chronic obstructive pulmonary disease) 5. Tobacco abuse 6. remote hx cocaine abuse, last use 4 months SECOND HAND 7. epistaxis 8. uncontrolled hypertension 9. Mass in the proximal larynx with soft tissue swelling and narrowing. PROB LARYNGEAL CA PLAN PULM CONSULT CARD CONSULT d/w dr Mae tele serial troponin i echo iv hydralazine prn 10mg q 4 hrs prn bp support toprol xl 25 mg po daily scd's smoking cessation education provided ct soft tissues of neck NOTED, MASS PT AND HER PREFER TO LEAVE AMA TODAY, DRIVE DIRECTLY TO [facility], WE DO NOT HAVE A ENT SPECIALIST ON STAFF HERE THAT CAN SEE TODAY D/W WITH THEM IN DETAIL TODAY, WELL MARIANELA RIVERS 36 min pt exam, D/C PLANNING , chart review, > 50% of time with exam, chart review, pt care coordination Vitals Vitals Vital Signs Date Time Temp Pulse Resp B/P (MAP) Pulse Ox O2 Delivery O2 Flow Rate FiO2 10/13/18 10:55 98.8 77 18 106/60 (75) 99 Room Air 98.8 Physical Exam General: Alert, Oriented X3, Cooperative, No acute distress, mild distress Heart: Regular rate, Normal S1 Lungs: Clear, Crackles Abdomen: Normal bowel sounds Extremities: No clubbing, No cyanosis, No edema Skin: No breakdown Labs LABS REASON: possible mass PROCEDURE: CT SOFT TISSUE NECK W/CONTRAST CT neck with contrast. HISTORY: Possible mass, chest pain, hemoptysis CT scan of the neck was done using 70 mL Omnipaque patent 300 contrast. Visualized portion of the brain is unremarkable. Ventricles are normal in size. There is mild mucosal thickening in a few ethmoid air cells. Frontal, sphenoid and maxillary sinuses are clear. There is prominence in swelling of the adenoids, tonsils and lingual tonsils. There is no retropharyngeal soft tissue swelling. Epiglottis appears normal. There is a mass in the upper larynx with narrowing of the larynx. Level of vocal cords appear normal. The proximal trachea appears normal. There is no upper mediastinal adenopathy. Upper lobes of the lungs are clear. Thyroid is homogeneous. There is no adenopathy in the neck. Parotid and submandibular glands are unremarkable. There is mild spurring at C5-6 and C6-7 with mild disc space narrowing at C5-6. IMPRESSION: 1. Soft tissue swelling of the adenoids, tonsils and lingual tonsils. 2. Normal epiglottis. 3. Mass in the proximal larynx with soft tissue swelling and narrowing. FINAL DIAGNOSIS Problems Medical Problems: (1) Chest pain Status: Acute (2) COPD (chronic obstructive pulmonary disease) Status: Acute (3) Hemoptysis Status: Acute (4) Pulmonary nodule Status: Acute Brief Hospital Course Ms. Arboleda is a 53 old [sex] who presented with [HEMPOTYSIS ] CONDITION AT DISCHARGE: Comment (NOT STABILIZED) Discharge Medications Current Medications Sodium Chloride 1,000 ml @ 1,000 mls/hr 1X ONCE IV Last administered on at 21:25; Start 10/11/18 at 21:00; Stop 10/11/18 at 21:59; Status DC Albuterol/ Ipratropium (Duoneb) 3 ml 1X ONCE NEB Last administered on at 21:57; Start 10/11/18 at 21:30; Stop 10/11/18 at 21:31; Status DC Dexamethasone Sodium Phosphate (Decadron) 10 mg 1X ONCE IV Last administered on 10/11/18at 21:24; Start 10/11/18 at 21:30; Stop 10/11/18 at 21:31; Status DC Iohexol (Omnipaque 350 Mg/ml) 100 ml 1X ONCE IV Last administered on at 22:24; Start 10/11/18 at 22:30; Stop 10/11/18 at 22:31; Status DC Info (CONTRAST GIVEN -- Rx MONITORING) 1 each PRN DAILY PRN MC SEE COMMENTS; Start 10/11/18 at 22:00; Stop 10/13/18 at 21:59; Status Cancel Enoxaparin Sodium (Lovenox 100mg Syringe) 100 mg 1X ONCE SQ Last administered on 10/12/18at 00:21; Start 10/12/18 at 00:30; Stop 10/12/18 at 00:31; Status DC Ondansetron HCl (Zofran) 4 mg PRN Q8HRS PRN IV NAUSEA/VOMITING 1ST CHOICE; Start 10/12/18 at 00:00; Stop 10/12/18 at 10:56; Status DC Insulin Human Lispro (HumaLOG) 0-5 UNITS TIDWMEALS SQ ; Start 10/12/18 at 08:00 Dextrose (Dextrose 50%-Water Syringe) 12.5 gm PRN Q15MIN PRN IV SEE COMMENTS; Start 10/12/18 at 00:00 Albuterol Sulfate (Ventolin Neb Soln) 2.5 mg PRN Q4HRS PRN NEB WHEEZING Last administered on 10/12/18at 09:48; Start 10/12/18 at 00:15 Hydralazine HCl (Apresoline Inj) 10 mg 1X ONCE IVP Last administered on at 10:42; Start 10/12/18 at 10:45; Stop 10/12/18 at 10:46; Status DC Hydralazine HCl (Apresoline Inj) 10 mg PRN Q4HRS PRN IVP ELEVATED BP, SEE COMMENTS; Start 10/12/18 at 10:45 Metoprolol Succinate (Toprol Xl) 25 mg DAILY PO Last administered on 10/13/18at 08:30; Start 10/12/18 at 11:00 Sodium Chloride (Normal Saline Flush 3ml) 3 ml QSHIFT PRN IV AFTER MEDS AND BLOOD DRAWS; Start 10/12/18 at 10:45 Ondansetron HCl (Zofran) 4 mg PRN Q4HRS PRN IV NAUSEA/VOMITING; Start 10/12/18 at 10:45 Zolpidem Tartrate (Ambien) 5 mg PRN QHS PRN PO INSOMNIA Last administered on at 21:16; Start 10/12/18 at 10:45 Acetaminophen (Tylenol) 650 mg PRN Q4HRS PRN PO TEMP OVER 100.4F OR HEADACHE; Start 10/12/18 at 10:45 Al Hydroxide/Mg Hydroxide (Mylanta Plus Xs) 30 ml PRN DAILY PRN PO HEARTBURN / GAS; Start 10/12/18 at 10:45 Clonidine HCl (Catapres) 0.1 mg PRN Q6HRS PRN PO SBP>160 OR DBP>90; Start 10/12 at 10:45 Sodium Monofluorophosphate (Fleet Adult) 133 ml PRN DAILY PRN RI CONSTIPATION; Start 10/12/18 at 10:45 Diphenhydramine HCl (Benadryl) 25 mg PRN Q4HRS PRN IVP ITCHING; Start 10/12/18 at 10:45 Docusate Sodium (Colace) 100 mg PRN BID PRN PO CONSTIPATION; Start 10/12/18 at 10:45 Albuterol/ Ipratropium (Duoneb) 3 ml Q4H NEB Last administered on 10/13/18at 11: 49; Start 10/12/18 at 10:45 Guaifenesin (Robitussin) 200 mg PRN Q4HRS PRN PO COUGH; Start 10/12/18 at 10:45 Lorazepam (Ativan) 0.5 mg PRN Q4HRS PRN PO ANXIETY / AGITATION Last administered on 10/12/18at 21:16; Start 10/12/18 at 10:45 Ceftriaxone Sodium (Rocephin) 1 gm Q24H IVP Last administered on 10/12/18at 15: 03; Start 10/12/18 at 11:15 Azithromycin (Zithromax) 500 mg 1X ONCE PO Last administered on 10/12/18at 15: 04; Start 10/12/18 at 11:15; Stop 10/12/18 at 11:16; Status DC Azithromycin (Zithromax) 250 mg 1X ONCE PO ; Start 10/13/18 at 11:15; Stop at 11:16; Status DC Methylprednisolone Sodium Succinate (SOLU-Medrol 40MG VIAL) 40 mg Q8HRS IV Last administered on 10/13/18at 06:00; Start 10/12/18 at 11:15 Pantoprazole Sodium (Protonix) 40 mg DAILYAC PO Last administered on 10/13/18at 08:30; Start 10/12/18 at 11:15 Lactobacillus Rhamnosus (Culturelle) 1 cap BID PO Last administered on at 08:29; Start 10/12/18 at 21:00 Iohexol (Omnipaque 300 Mg/ml) 75 ml 1X ONCE IV ; Start 10/13/18 at 10:15; Stop 10/13/18 at 10:17; Status DC Info (CONTRAST GIVEN -- Rx MONITORING) 1 each PRN DAILY PRN MC SEE COMMENTS; Start 10/13/18 at 10:30; Stop 10/15/18 at 10:29 Info (CONTRAST GIVEN -- Rx MONITORING) 1 each PRN DAILY PRN MC SEE COMMENTS; Start 10/13/18 at 10:30; Stop 10/15/18 at 10:29 Active Scripts Active Reported No Known Medications Prior To Admisstion (Info) Each 1 Each Vital Signs Vital Signs Date Time Temp Pulse Resp B/P (MAP) Pulse Ox O2 Delivery O2 Flow Rate FiO2 10/13/18 11:49 98 Room Air 10/13/18 10:55 98.8 77 18 106/60 (75) 98.8 Labs Laboratory Tests Test 10/11/18 21:15 10/12/18 01:10 10/12/18 02:55 10/12/18 06:00 White Blood Count 8.3 x10^3/uL (4.0-11.0) Red Blood Count 5.13 x10^6/uL (3.50-5.40) Hemoglobin 12.8 g/dL (12.0-15.5) Hematocrit 38.9 % (36.0-47.0) Mean Corpuscular Volume 76 fL (79-100) Mean Corpuscular Hemoglobin 25 pg (25-35) Mean Corpuscular Hemoglobin Concent 33 g/dL (31-37) Red Cell Distribution Width 15.2 % (11.5-14.5) Platelet Count 310 x10^3/uL (140-400) Neutrophils (%) (Auto) 62 % (31-73) Lymphocytes (%) (Auto) 26 % (24-48) Monocytes (%) (Auto) 6 % (0-9) Eosinophils (%) (Auto) 5 % (0-3) Basophils (%) (Auto) 1 % (0-3) Neutrophils # (Auto) 5.2 x10^3uL (1.8-7.7) Lymphocytes # (Auto) 2.2 x10^3/uL (1.0-4.8) Monocytes # (Auto) 0.5 x10^3/uL (0.0-1.1) Eosinophils # (Auto) 0.4 x10^3/uL (0.0-0.7) Basophils # (Auto) 0.1 x10^3/uL (0.0-0.2) Prothrombin Time 12.0 SEC (11.7-14.0) Prothromb Time International Ratio 0.9 (0.8-1.1) Sodium Level 143 mmol/L (136-145) Potassium Level 4.1 mmol/L (3.5-5.1) Chloride Level 106 mmol/L (98-107) Carbon Dioxide Level 30 mmol/L (21-32) Anion Gap 7 (6-14) Blood Urea Nitrogen 15 mg/dL (7-20) Creatinine 0.8 mg/dL (0.6-1.0) Estimated GFR (Cockcroft-Gault) 91.1 BUN/Creatinine Ratio 19 (6-20) Glucose Level 104 mg/dL (70-99) Lactic Acid Level 0.8 mmol/L (0.4-2.0) Calcium Level 8.7 mg/dL (8.5-10.1) Magnesium Level 2.0 mg/dL (1.8-2.4) Total Bilirubin 0.1 mg/dL (0.2-1.0) Aspartate Amino Transf (AST/SGOT) 11 U/L (15-37) Alanine Aminotransferase (ALT/SGPT) 12 U/L (14-59) Alkaline Phosphatase 112 U/L (46-116) Creatine Kinase 58 U/L (26-192) Creatine Kinase MB (Mass) < 0.5 ng/mL (0.0-3.6) Creatine Kinase MB Relative Index % (0-4) Troponin I Quantitative < 0.017 ng/mL (0.000-0.055) < 0.017 ng/mL (0.000-0.055) < 0.017 ng/mL (0.000-0.055) WS-Ncp-E-Type Natriuretic Peptide 98 pg/mL (0-124) Total Protein 6.9 g/dL (6.4-8.2) Albumin 2.9 g/dL (3.4-5.0) Albumin/Globulin Ratio 0.7 (1.0-1.7) Lipase 128 U/L (73-393) Urine Collection Type Unknown Urine Color Yellow Urine Clarity Clear Urine pH 6.5 Urine Specific [place] >=1.030 Urine Protein Negative mg/dL (NEG-TRACE) Urine Glucose (UA) Negative mg/dL (NEG) Urine Ketones (Stick) Negative mg/dL (NEG) Urine Blood Negative (NEG) Urine Nitrite Negative (NEG) Urine Bilirubin Negative (NEG) Urine Urobilinogen Dipstick 0.2 mg/dL (0.2 mg/dL) Urine Leukocyte Esterase Negative (NEG) Urine RBC Occ /HPF (0-2) Urine WBC Occ /HPF (0-4) Urine Squamous Epithelial Cells Few /LPF Urine Bacteria Moderate /HPF (0-FEW) Test 10/12/18 07:08 10/12/18 09:13 10/12/18 11:17 10/12/18 16:35 Glucose (Fingerstick) 131 mg/dL (70-99) 110 mg/dL (70-99) Urine Opiates Screen Neg (NEG) Urine Methadone Screen Neg (NEG) Urine Barbiturates Neg (NEG) Urine Phencyclidine Screen Neg (NEG) Urine Amphetamine/Methamphetamine Neg (NEG) Urine Benzodiazepines Screen Neg (NEG) Urine Cocaine Screen Neg (NEG) Urine Cannabinoids Screen Neg (NEG) Urine Ethyl Alcohol Neg (NEG) Influenza Type A Antigen Negative (NEGATIVE) Influenza Type B Antigen Negative (NEGATIVE) Test 10/12/18 16:44 10/12/18 20:23 10/13/18 06:22 10/13/18 07:01 Glucose (Fingerstick) 112 mg/dL (70-99) 135 mg/dL (70-99) 150 mg/dL (70-99) White Blood Count 21.1 x10^3/uL (4.0-11.0) Red Blood Count 5.24 x10^6/uL (3.50-5.40) Hemoglobin 12.9 g/dL (12.0-15.5) Hematocrit 39.8 % (36.0-47.0) Mean Corpuscular Volume 76 fL (79-100) Mean Corpuscular Hemoglobin 25 pg (25-35) Mean Corpuscular Hemoglobin Concent 32 g/dL (31-37) Red Cell Distribution Width 15.2 % (11.5-14.5) Platelet Count 322 x10^3/uL (140-400) Neutrophils (%) (Auto) 90 % (31-73) Lymphocytes (%) (Auto) 7 % (24-48) Monocytes (%) (Auto) 2 % (0-9) Eosinophils (%) (Auto) 0 % (0-3) Basophils (%) (Auto) 0 % (0-3) Neutrophils # (Auto) 19.0 x10^3uL (1.8-7.7) Lymphocytes # (Auto) 1.6 x10^3/uL (1.0-4.8) Monocytes # (Auto) 0.4 x10^3/uL (0.0-1.1) Eosinophils # (Auto) 0.0 x10^3/uL (0.0-0.7) Basophils # (Auto) 0.1 x10^3/uL (0.0-0.2) Segmented Neutrophils % 80 % (35-66) Band Neutrophils % 12 % (0-9) Lymphocytes % 7 % (24-48) Monocytes % 1 % (0-10) Platelet Estimate Adequate (ADEQUATE) Anisocytosis Slight Target Cells Few Sodium Level 141 mmol/L (136-145) Potassium Level 3.9 mmol/L (3.5-5.1) Chloride Level 105 mmol/L (98-107) Carbon Dioxide Level 24 mmol/L (21-32) Anion Gap 12 (6-14) Blood Urea Nitrogen 15 mg/dL (7-20) Creatinine 0.7 mg/dL (0.6-1.0) Estimated GFR (Cockcroft-Gault) 106.3 Glucose Level 134 mg/dL (70-99) Calcium Level 9.1 mg/dL (8.5-10.1) Troponin I Quantitative < 0.017 ng/mL (0.000-0.055) Test 10/13/18 11:46 Glucose (Fingerstick) 101 mg/dL (70-99) Laboratory Tests Test 10/12/18 16:35 10/12/18 16:44 10/12/18 20:23 10/13/18 06:22 Influenza Type A Antigen Negative (NEGATIVE) Influenza Type B Antigen Negative (NEGATIVE) Glucose (Fingerstick) 112 mg/dL (70-99) 135 mg/dL (70-99) White Blood Count 21.1 x10^3/uL (4.0-11.0) Red Blood Count 5.24 x10^6/uL (3.50-5.40) Hemoglobin 12.9 g/dL (12.0-15.5) Hematocrit 39.8 % (36.0-47.0) Mean Corpuscular Volume 76 fL (79-100) Mean Corpuscular Hemoglobin 25 pg (25-35) Mean Corpuscular Hemoglobin Concent 32 g/dL (31-37) Red Cell Distribution Width 15.2 % (11.5-14.5) Platelet Count 322 x10^3/uL (140-400) Neutrophils (%) (Auto) 90 % (31-73) Lymphocytes (%) (Auto) 7 % (24-48) Monocytes (%) (Auto) 2 % (0-9) Eosinophils (%) (Auto) 0 % (0-3) Basophils (%) (Auto) 0 % (0-3) Neutrophils # (Auto) 19.0 x10^3uL (1.8-7.7) Lymphocytes # (Auto) 1.6 x10^3/uL (1.0-4.8) Monocytes # (Auto) 0.4 x10^3/uL (0.0-1.1) Eosinophils # (Auto) 0.0 x10^3/uL (0.0-0.7) Basophils # (Auto) 0.1 x10^3/uL (0.0-0.2) Segmented Neutrophils % 80 % (35-66) Band Neutrophils % 12 % (0-9) Lymphocytes % 7 % (24-48) Monocytes % 1 % (0-10) Platelet Estimate Adequate (ADEQUATE) Anisocytosis Slight Target Cells Few Sodium Level 141 mmol/L (136-145) Potassium Level 3.9 mmol/L (3.5-5.1) Chloride Level 105 mmol/L (98-107) Carbon Dioxide Level 24 mmol/L (21-32) Anion Gap 12 (6-14) Blood Urea Nitrogen 15 mg/dL (7-20) Creatinine 0.7 mg/dL (0.6-1.0) Estimated GFR (Cockcroft-Gault) 106.3 Glucose Level 134 mg/dL (70-99) Calcium Level 9.1 mg/dL (8.5-10.1) Troponin I Quantitative < 0.017 ng/mL (0.000-0.055) Test 10/13/18 07:01 10/13/18 11:46 Glucose (Fingerstick) 150 mg/dL (70-99) 101 mg/dL (70-99) Allergies Allergies Coded Allergies Type Severity Reaction Last Updated Verified shellfish derived Allergy Intermediate 01/30/16 Yes Disposition/Orders: Other (LEFT AMA) Patient Instructions D/C PLANNING 36 MIN KARINA HURLEY MD Oct 13, 2018 12:11
[2018-10-13] MEDS ORDERED: METO-239 PO (12:13)
--- NOTE | 2018-10-13 12:15 | DISCH ---
DISCHARGE INSTRUCTIONS Condition on Discharge Condition on Discharge: Guarded Activity After Discharge Activity Instructions for Disc: Activity as tolerated Lifting Instructions after Dis: No heavy lifting Driving Instructions after Dis: Do not drive Diet after Discharge Liquid Texture: Thin Liquid Contacting the DR. after DC Call your doctor for: If your condition worsens KARINA HURLEY MD Oct 13, 2018 12:15
--- NOTE | 2018-10-13 13:00 | NUR ---
Pt discharged to home with spouse. Instructed pt to go to for ENT services. Reviewed test results with pt and spouse. Dr Willis discussed the importance of immediate follow up with . Patient and spouse verbalized understanding and reports she will go to ER today.
== END 2018-10-13 13:00 | disposition home or self-care (01) | DRG 191 ==
LOC: ER 19:59 → 6 SOUTH 23:58
PROVIDERS: ADMIT Internal Medicine; ATTEND Internal Medicine
DX: J44.0 Chronic obstructive pulmonary disease with (acute) lower respiratory infection (principal); R04.2 Hemoptysis; J20.9 Acute bronchitis, unspecified; J44.1 Chronic obstructive pulmonary disease with (acute) exacerbation; C14.0 Malignant neoplasm of pharynx, unspecified; R04.0 Epistaxis; M48.02 Spinal stenosis, cervical region; J38.6 Stenosis of larynx; I10 Essential (primary) hypertension; J38.7 Other diseases of larynx; E11.9 Type 2 diabetes mellitus without complications; R59.0 Localized enlarged lymph nodes; M46.02 Spinal enthesopathy, cervical region; F41.9 Anxiety disorder, unspecified; F14.10 Cocaine abuse, uncomplicated; R91.1 Solitary pulmonary nodule; F17.210 Nicotine dependence, cigarettes, uncomplicated; Z98.891 History of uterine scar from previous surgery; Z90.710 Acquired absence of both cervix and uterus; Z82.49 Family history of ischemic heart disease and other diseases of the circulatory system; Z71.6 Tobacco abuse counseling; Z91.013 Allergy to seafood
CPT/HCPCS: 36415; 70491; 71275; 78582; 80048; 80053; 80307; 81001; 82553; 82962; 83605; 83690; 83735; 83880; 84484; 85007; 85025; 85610; 87086; 87804; 93005; 93970; 94640; 94760; 96361; 96374; A9540; A9558; J0360; J0696; J1100; J1650; J1815; J2920; J7030; J7613; J7620; Q0144; Q9967; 99285-25

== ENCOUNTER → 2020-12-14 | Outpatient (CLI) | payer OTHER ==
[~2020-12-14] MED LIST changes: +METO-239 PO
--- NOTE | 2020-12-14 16:56 | RAD ---
XR HAND_RIGHT 2 VIEWS History: Reason: left ankle and right hand pain / Spl. Instructions: / History: Technique: 2 views right hand Comparison: None. Findings: Anterior subluxation of the fourth proximal phalangeal joint with hypertrophic changes of the middle phalanx as well as erosions of the proximal phalanx distal aspect due to abnormal articulation. No ac angel luis fracture. Mild distal interphalangeal degenerative changes involving the third and fourth digits. Mild first carpometacarpal and triscaphe DJD. Impression: 1. Anterior subluxation of the right fourth proximal interphalangeal joint with hypertrophic changes , may relate to prior fracture dislocation injury and abnormal healing. Recommend correlation with donte arana's history. Electronically signed by: Aman Chinchilla DO (12/14/2020 4:54 PM) [id number]
--- NOTE | 2020-12-14 16:57 | RAD ---
XR EXAM OF ANKLE_LEFT 2V History: Reason: left ankle and right hand pain / Spl. Instructions: / History: Technique: 2 views left ankle Comparison: None. Findings: Normal alignment. Symmetric ankle mortise. No fracture. Impression: 1. No acute osseous abnormality. Electronically signed by: Aman Chinchilla DO (12/14/2020 4:55 PM) [id number]
== END ==
LOC: PF 10:27
PROVIDERS: ATTEND Family Medicine
DX: J45.909 Unspecified asthma, uncomplicated (principal); M25.571 Pain in right ankle and joints of right foot; M79.641 Pain in right hand
CPT/HCPCS: 73120; 73600; 94060; 94640; 94664